=== PATIENT | male | born 1960 | race Caucasian/White ===

== ENCOUNTER → 2016-08-03 | Outpatient (CLI) | payer BC, OTHER ==
[~2016-08-03] VITALS: Ht 177.8 cm; Wt 93.0 kg
[~2016-08-03] MED LIST: ASP81TEC PO; ATOR80TA PO; ATR20T PO; CATHETER FLUSH 10 ML SYR IV PRN; FENO145T2 PO; METO25TA2 PO; OMEG1CAP51 PO; PNT40TEC PO; PRAS10TA6 PO; REGADENOSON 0.4 MG/5 ML SYR (LEXISCAN) IV ONE
[2016-08-03 09:42] VITALS: BP 137/82
[2016-08-03 09:47] VITALS: BP 137/80
[2016-08-03 09:49] VITALS: BP 136/85
== END ==
LOC: CARD 08:14
PROVIDERS: ATTEND Internal Medicine Cardiovascular Disease
DX: I25.10 Atherosclerotic heart disease of native coronary artery without angina pectoris (principal); R07.9 Chest pain, unspecified; E11.9 Type 2 diabetes mellitus without complications; I10 Essential (primary) hypertension; E78.5 Hyperlipidemia, unspecified
CPT/HCPCS: 78452; 93017

== ENCOUNTER 2017-05-20 19:10 | Inpatient (IN) | payer BC ==
[2017-05-20] VITALS (7 sets, daily range): BP systolic 122–137; BP diastolic 81–96
[~2017-05-20] VITALS: Ht 177.8 cm; Wt 86.2 kg
[~2017-05-20 19:10] MED LIST changes: -CATHETER FLUSH 10 ML SYR IV PRN; -REGADENOSON 0.4 MG/5 ML SYR (LEXISCAN) IV ONE
[2017-05-20] MEDS ORDERED: NITROGLYCERIN 0.4 MG SL TABS BTL 25'S SL PRN ×2 (19:30→22:30)
[2017-05-20] MEDS ORDERED: ASPIRIN 81 MG CHEW (CHILDREN'S ASA) PO ONE (19:30)
--- NOTE | 2017-05-20 19:36 | ED Chest Pain ---
General Chief Complaint: Chest Pain Stated Complaint: POSS HEART ATTACK Nursing Triage Note: PT C/O CP ALL DAY. HE REPORTS IT BEGAN THIS AM. 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 HE IS ALSO C/O DYSPNEA. HE DENIES RADIATION OR N/V. Nursing Sepsis Screen: No Definite Risk Source: patient Exam Limitations: no limitations History of Present Illness Date Seen by Provider: May 20, 2017 Time Seen by Provider: 19:23 Initial Comments The patient presents to the ER by private conveyance with a chief complaint that he has had intermittent 15-20 minute episodes of chest pain substernal today with his most recent one being severe enough that he's taken 2 nitroglycerin. The first nitroglycerin helped a little bit in half hour later he took another nitroglycerin that did not really do anything. He admits his nitroglycerin is over 2 years old. He has a history of an LA and 4 stents and is followed by Dr. Hitchcock. He still drinks and smokes a pack a day. He does not have diabetes but he does have high blood pressure and cholesterol. He takes metoprolol but has recently been stopped on his TriCor and Lipitor because of elevated liver enzymes. He takes a daily aspirin and took a second one today when he started having chest pain. He did not have any sweats or nausea but he is having some shortness of breath without cough, fever, chills. He states that the pain is reminiscent of chest pain he had prior to a heart attack. Allergies and Home Medications Allergies Coded Allergies: codeine (Verified Adverse Reaction, Unknown, 05/20/17) MAKES HIM JITTERY Home Medications Aspirin 81 Mg Tabec, 81 MG PO DAILY, (Reported) Atorvastatin Calcium 80 Mg Tablet, 80 MG PO HS, (Reported) Fenofibrate,Micronized 145 Mg Tablet, 145 MG PO HS, (Reported) Metoprolol Tartrate 25 Mg Tablet, 12.5 MG PO BID, (Reported) [place]-3 Fatty Acids/Fish Oil 1 Each Capsule, 3 TAB PO HS, (Reported) PT HAS 1400MG CAPS Pantoprazole Sod 40 Mg Tab, 40 MG PO DAILY, (Reported) Prasugrel Hydrochloride 10 Mg Tablet, 10 MG PO DAILY, (Reported) Patient Home Medication List Home Medication List Reviewed: Yes Review of Systems Constitutional: No chills, No fever EENTM: No Eye Pain, No Ear Pain Respiratory: Denies Cough, Denies Shortness of Air Cardiovascular: Chest Pain; Denies Edema, Denies Irregular Heart Rate, Denies Palpitations Gastrointestinal: Denies Abdomen Distended, Denies Abdominal Pain, Denies Constipated, Denies Nausea Genitourinary: Denies Burning, Denies Discharge, Denies Drainage Skin: No pruritus, No rash Psychiatric/Neurological: Denies Anxiety, Denies Depressed Past Kthbyng-Tomwdz-Pwgzuq Hx Patient Social History Alcohol Use: Occasionally Uses Recreational Drug Use: No Smoking Status: Current Everyday Smoker Type Used: Cigarettes 2nd Hand Smoke Exposure: Yes Recent Foreign Travel: No Contact w/Someone Who Travel: No Recent Infectious Disease Expo: No Recent Hopitalizations: Yes Seasonal Allergies Seasonal Allergies: No Past Medical History Surgeries: Yes (HEART CATH WITH STENT PLACEMENT X 4) Orthopedic Respiratory: No Cardiac: Yes Heart Attack, Hypertension Neurological: No Reproductive Disorders: No Gastrointestinal: No Musculoskeletal: Yes Endocrine: No Psychosocial: No Blood Disorders: No Physical Exam Vital Signs Vital Signs - First Documented 05/20/17 19:10 Pulse Ox 98 O2 Delivery Nasal Cannula O2 Flow Rate 2.00 Capillary Refill : Less Than 3 Seconds General Appearance: WD/WN, Mild Distress HEENT: PERRL/EOMI, Pharynx Normal Neck: Full Range of Motion, Normal Inspection, Non Tender, Supple Respiratory: Chest Non Tender, Lungs Clear, Normal Breath Sounds, No Accessory Muscle Use, No Respiratory Distress Cardiovascular: Regular Rate, Rhythm, No Edema, Normal Peripheral Pulses Gastrointestinal: Normal Bowel Sounds, Non Tender, Soft Extremity: Normal Capillary Refill, No Pedal Edema Neurologic/Psychiatric: Alert, Oriented x3, Normal Mood/Affect Skin: Normal Color, Warm/Dry Progress/Results/Core Measures Lab Results Laboratory Tests Test 05/20/17 19:15 Range/Units White Blood Count 13.3 H 4.3-11.0 10^3/uL Red Blood Count 4.96 4.35-5.85 10^6/uL Hemoglobin 16.1 13.3-17.7 G/DL Hematocrit 44 40-54 % Mean Corpuscular Volume 89 80-99 FL Mean Corpuscular Hemoglobin 33 25-34 PG Mean Corpuscular Hemoglobin Concent 36 32-36 G/DL Red Cell Distribution Width 12.6 10.0-14.5 % Platelet Count 210 130-400 10^3/uL Mean Platelet Volume 9.8 7.4-10.4 FL Neutrophils (%) (Auto) 56 42-75 % Lymphocytes (%) (Auto) 37 12-44 % Monocytes (%) (Auto) 6 0-12 % Eosinophils (%) (Auto) 1 0-10 % Basophils (%) (Auto) 0 0-10 % Neutrophils # (Auto) 7.5 1.8-7.8 X 10^3 Lymphocytes # (Auto) 4.9 H 1.0-4.0 X 10^3 Monocytes # (Auto) 0.7 0.0-1.0 X 10^3 Eosinophils # (Auto) 0.2 0.0-0.3 10^3/uL Basophils # (Auto) 0.1 0.0-0.1 10^3/uL Prothrombin Time 13.0 12.2-14.7 SEC INR Comment 1.0 0.8-1.4 Activated Partial Thromboplast Time 27 24-35 SEC Sodium Level 139 135-145 MMOL/L Potassium Level 3.6 3.6-5.0 MMOL/L Chloride Level 100 98-107 MMOL/L Carbon Dioxide Level 24 21-32 MMOL/L Anion Gap 15 H 5-14 MMOL/L Blood Urea Nitrogen 7 7-18 MG/DL Creatinine 0.90 0.60-1.30 MG/DL Estimat Glomerular Filtration Rate > 60 BUN/Creatinine Ratio 8 Glucose Level 214 H 70-105 MG/DL Calcium Level 10.0 8.5-10.1 MG/DL Magnesium Level 1.9 1.8-2.4 MG/DL Total Bilirubin 0.8 0.1-1.0 MG/DL Aspartate Amino Transf (AST/SGOT) 60 H 5-34 U/L Alanine Aminotransferase (ALT/SGPT) 102 H 0-55 U/L Alkaline Phosphatase 66 40-136 U/L Myoglobin 26.6 10.0-92.0 NG/ML Troponin I < 0.30 <0.30 NG/ML B-Type Natriuretic Peptide 35.9 <100.0 PG/ML Total Protein 7.6 6.4-8.2 GM/DL Albumin 4.5 3.2-4.5 GM/DL Lipase 37 8-78 U/L My Orders Orders - ARYAN DELONG Cbc With Automated Diff (05/20/17 19:29) Magnesium (05/20/17 19:29) Chest 1 View, Ap/Pa Only (05/20/17 19:29) Ekg Tracing (05/20/17:) Cardiac Profile 1 (05/20/17) Comprehensive Metabolic Panel (05/20/17:) Myoglobin Serum (05/20/17:) Protime With Inr (05/20/17:) Partial Thromboplastin Time (05/20/17:) O2 (05/20/17:) Monitor-Rhythm Ecg Trace Only (05/20/17) Lipid Panel (05/21/17 06:00) Aspirin Chewable Tablet (Baby Aspirin Ch (05/20/17:30) Nitroglycerin 0.4 Mg Btl 25's (Nitrostat (05/20/17:30) Saline Lock/Iv-Start (05/20/17:) Lipase (05/20/17:) BNP (05/20/17:) Medications Given in ED Current Medications Medications Dose Ordered Sig/José Miguel Route Start Time Stop Time Status Last Admin Dose Admin Aspirin 324 mg ONCE ONCE PO 05/20/17 19:30 05/20/17 19:31 DC 05/20/17 19:38 324 MG Nitroglycerin 0.4 mg UD PRN SL 05/20/17 19:30 05/20/17 22:24 DC 05/20/17 19:38 0.4 MG Vital Signs/I&O 05/20/17 05/20/17 05/20/17 19:10 19:15 19:15 Temp 97.2 Pulse 82 Resp 15 B/P (MAP) 159/111 (127) Pulse Ox 98 96 O2 Delivery Nasal Cannula Room Air Room Air O2 Flow Rate 2.00 Blood Pressure Mean: 127 Progress Note : Time: 19:35 Progress Note Despite him having admitted to taking 2 tablets of aspirin today were given and give him a full dose given the condition of his nitroglycerin. The nitroglycerin tablets were in a state of advanced decay with half of them being up fine powder and the bottom of a bottle with no label. We'll give him another tablet of nitroglycerin despite his pain being only a 4 out of 10 as his blood pressure is still elevated. We put him on oxygen and we'll address his pain. The initial EKG is not demonstrating a STEMI so we'll obtain labs and if there is no NSTEMI we will plan on an observation stay for serial examination and consultation with Dr. Hitchcock. Dr. Hitchcock echocardiogram 2014 showing normal left ventricular size and systolic function with an EF of 60%. Mildly dilated left atrium. Mild mitral and tricuspid regurgitation and an estimated pulmonary artery pressure of 35 mmHg. Initial ECG Impression Date: May 20, 2017 Initial ECG Impression Time: 19:10 Initial ECG Rate: 74 Initial ECG Rhythm: Normal Sinus Initial ECG Intervals: Normal Initial ECG Impression: Nonspecific Changes Initial ECG Comparisson: Unchanged (2010) Comment No ST T-segment elevation or depression. PVCs seen. Diagonstic Imaging: Xray Plain Films/CT/US/NM/MRI: chest Comments NAME: ALEX MCKENNA MED REC#: [id number] PHYSICIAN: ARYAN DELONG MD CC: DONALD FRAUSTO MD; ARYAN DELONG Page 1 of 1 RADIOLOGY REPORT VIA [place], [place] CC: DONALD FRAUSTO MD; ARYAN DELONG Page 1 of 1 RADIOLOGY REPORT NAME: CLARISAALEX B MED REC#: [id number] PT STATUS: REG ER : 1960 PHYSICIAN: ARYAN DELONG MD ADMIT DATE: 05/20/17/ER Signed Date of Exam: 05/20/17 CHEST 1 VIEW, AP/PA ONLY INDICATION: Anterior chest wall pain Portable chest 7:37 PM Heart size and pulmonary vascularity are normal. Lungs are clear. There are no effusions or pneumothoraces. IMPRESSION: Negative chest Dictated by: Dictated on workstation # [id number] Dict: 05/20/171940 Trans: 05/20/171950 Interpreted by: DONALD FRAUSTO MD Electronically signed by: DONALD FRAUSTO MD 05/20/171950 Reviewed: Reviewed by Me Departure Communication (Admissions) Time/Spoke to Admitting Phy: 20:30 Discussed case lab imaging findings and EKG with Dr. Lugo and he is okay with an observation stay for cardiac serial examination. Time/Spoke to Consulting Phy: 20:25 Discussed case lab imaging EKG and findings with Dr. Madrid. He recommends a half inch Nitropaste 3 times a day topical, metoprolol succinate 25 mg now and then daily as well as Plavix 75 mg now and then daily. He will consult on the patient. Impression Primary Impression: Chest pain Qualified Codes: R07.9 - Chest pain, unspecified Disposition: ADMITTED INPATIENT Condition: Stable Admissions Decision to Admit Reason: Admit from ER (General) Decision to Admit/Date: May 20, 2017 Time/Decision to Admit Time: 19:40 Departure-Patient Inst. Referrals: JESSICA CHANCE MD (PCP/Family) Primary Care Physician Copy Copies To 1: ISAAC HITCHCOCK MD; JESSICA CHANCE MD, TITUS J May 20, 2017 19:36
--- NOTE | 2017-05-20 19:43 | Diagnostic Imaging Report ---
INDICATION: Anterior chest wall pain Portable chest 7:37 PM Heart size and pulmonary vascularity are normal. Lungs are clear. There are no effusions or pneumothoraces. IMPRESSION: Negative chest Dictated by: Dictated on workstation # [id number]
[2017-05-20 19:53] LABS: BASOPHILS # (AUTO) 0.1 10^3/uL (0.0-0.1); BASOPHILS % (AUTO) 0 % (0-10); EOSINOPHILS # (AUTO) 0.2 10^3/uL (0.0-0.3); EOSINOPHILS % (AUTO) 1 % (0-10); HEMATOCRIT 44 % (40-54); HEMOGLOBIN 16.1 G/DL (13.3-17.7); LYMPHOCYTES # (AUTO) 4.9 X 10^3 (1.0-4.0); LYMPHOCYTES % (AUTO) 37 % (12-44); MEAN CORPUSCULAR HEMOGLOBIN 33 PG (25-34); MEAN CORPUSCULAR HGB CONC 36 G/DL (32-36); MEAN CORPUSCULAR VOLUME 89 FL (80-99); MEAN PLATELET VOLUME 9.8 FL (7.4-10.4); MONOCYTES # (AUTO) 0.7 X 10^3 (0.0-1.0); MONOCYTES % (AUTO) 6 % (0-12); NEUTROPHILS # (AUTO) 7.5 X 10^3 (1.8-7.8); NEUTROPHILS % (AUTO) 56 % (42-75); PLATELET COUNT 210 10^3/uL (130-400); RED BLOOD COUNT 4.96 10^6/uL (4.35-5.85); RED CELL DISTRIBUTION WIDTH 12.6 % (10.0-14.5); WHITE BLOOD COUNT 13.3 10^3/uL (4.3-11.0)
[2017-05-20 20:09] LABS: ALANINE AMINOTRANSFERASE 102 U/L (0-55); ALBUMIN 4.5 GM/DL (3.2-4.5); ALKALINE PHOSPHATASE 66 U/L (40-136); BILIRUBIN,TOTAL 0.8 MG/DL (0.1-1.0); BUN/CREATININE RATIO 8; CARBON DIOXIDE 24 MMOL/L (21-32); CHLORIDE 100 MMOL/L (98-107); GFR ESTIMATED > 60; GLUCOSE 214 MG/DL (70-105); LIPASE 37 U/L (8-78); MAGNESIUM 1.9 MG/DL (1.8-2.4); POTASSIUM 3.6 MMOL/L (3.6-5.0); SODIUM 139 MMOL/L (135-145); TOTAL PROTEIN 7.6 GM/DL (6.4-8.2)
[2017-05-20 20:15] LABS: MYOGLOBIN SERUM 26.6 NG/ML (10.0-92.0)
[2017-05-20] MEDS ORDERED: morphine INJ 10 MG/ML 1ML (SYR OR VIAL) IVP ONE (20:45)
[2017-05-20] MEDS ORDERED: NITROGLYCERIN 2% OINT 1 GM UNIT DOSE PACKET TOP ONE (20:45)
[2017-05-20] MEDS ORDERED: CLOPIDOGREL 75 MG (PLAVIX) TABLET PO ONE (20:45)
[2017-05-20] MEDS ORDERED: ACETAMINOPHEN 500 MG TAB (TYLENOL) PO PRN (22:30)
[2017-05-20] MEDS ORDERED: morphine INJ 4 MG/ML 1 ML (VIAL/SYRINGE) IV PRN (22:30)
[2017-05-20] MEDS ORDERED: ONDANSETRON 4 MG/2 ML (SDV) Z0FRAN IV PRN (22:30)
[2017-05-21] VITALS (34 sets, daily range): BP systolic 96–135; BP diastolic 69–99
[2017-05-21 03:40] LABS: BASOPHILS # (AUTO) 0.1 10^3/uL (0.0-0.1); BASOPHILS % (AUTO) 0 % (0-10); EOSINOPHILS # (AUTO) 0.3 10^3/uL (0.0-0.3); EOSINOPHILS % (AUTO) 2 % (0-10); HEMATOCRIT 37 % (40-54); LYMPHOCYTES # (AUTO) 4.8 X 10^3 (1.0-4.0); LYMPHOCYTES % (AUTO) 41 % (12-44); MEAN CORPUSCULAR HGB CONC 36 G/DL (32-36); MEAN CORPUSCULAR VOLUME 90 FL (80-99); MEAN PLATELET VOLUME 9.1 FL (7.4-10.4); MONOCYTES # (AUTO) 0.7 X 10^3 (0.0-1.0); MONOCYTES % (AUTO) 6 % (0-12); NEUTROPHILS # (AUTO) 5.7 X 10^3 (1.8-7.8); NEUTROPHILS % (AUTO) 50 % (42-75); PLATELET COUNT 154 10^3/uL (130-400); RED CELL DISTRIBUTION WIDTH 12.2 % (10.0-14.5); WHITE BLOOD COUNT 11.5 10^3/uL (4.3-11.0)
[2017-05-21 03:45] LABS: HEMOGLOBIN 14.7 G/DL (13.3-17.7); MEAN CORPUSCULAR HEMOGLOBIN 32 PG (25-34); RED BLOOD COUNT 4.54 10^6/uL (4.35-5.85)
[2017-05-21 04:01] LABS: BUN/CREATININE RATIO 12; CARBON DIOXIDE 24 MMOL/L (21-32); CHLORIDE 101 MMOL/L (98-107); CREATININE SERUM 0.77 MG/DL (0.60-1.30); GFR ESTIMATED > 60; GLUCOSE 223 MG/DL (70-105); POTASSIUM 3.4 MMOL/L (3.6-5.0); SODIUM 135 MMOL/L (135-145)
[2017-05-21 04:02] LABS: CHOLESTEROL 324 MG/DL (< 200); HDL CHOLESTEROL 36 MG/DL (40-60); TRIGLYCERIDES 529 MG/DL (<150); VLDL CHOLESTEROL 106 MG/DL (5-40)
[2017-05-21] MEDS ORDERED: NITROGLYCERIN 2% OINT 1 GM UNIT DOSE PACKET TOP SCH (06:00)
[2017-05-21] MEDS: ASPIRIN E.C. 81 MG (ECOTRIN) TAB PO SCH (08:32)
[2017-05-21] MEDS: lisINopril 5 MG (PRINIVIL) TABLET PO SCH (08:32)
[2017-05-21] MEDS: CLOPIDOGREL 75 MG (PLAVIX) TABLET PO SCH (08:32)
[2017-05-21] MEDS ORDERED: fentaNYL INJECTION 100 MCG/2 ML AMP ONE (10:08)
[2017-05-21] MEDS ORDERED: MIDAZOLAM 5 MG/5 ML (VERSED) VIAL ONE (10:08)
[2017-05-21] MEDS ORDERED: NS IV 1000 ML 1,000 ML ONE (10:08)
[2017-05-21] MEDS ORDERED: diphenhydrAMINE 50 MG/ML INJ (BENADRYL) ONE (10:08)
[2017-05-21] MEDS ORDERED: LIDOCAINE 1% INJ 50 ML (XYLOCAINE) VIAL ONE (10:08)
[2017-05-21] MEDS ORDERED: HEParin (CATH LAB) 2,000 ML IV ONE (10:09)
--- NOTE | 2017-05-21 10:21 | Consultation-Cardiology ---
HPI-Cardiology Cardiology Consultation: Date of Consultation 05/21/17 Time Seen by Provider: 09:45 Date of Admission Attending Physician Buark Manuel MD Admitting Physician Poncho Powell MD Consulting Physician GENESIS GALLAGHER MD, MA, FACP, FACC, FSCAI, CCDS HPI: Chief Complaint: CC: Chest discomfort HPI: 56 yo man with known CAD, admitted with intermittent chest discomfort: onset a couple of days ago, episodes lasting several hours, improved with nitro , midsternal, pressure-like, not associated with other symptoms, no radiation, reminiscent of previous angina Chronic mild exertional shortness of breath. No palp. No syncope. No ankle swelling Review of Systems-Cardiology Review of Systems Constitutional: malaise; No weight loss, No weight gain Eyes: No vision change Ears/Nose/Throat: No ear discharge, No nasal drainage, No recent hearing loss Respiratory: As described under HPI Cardiovascular: As described under HPI Gastrointestinal: No constipation, No diarrhea, No nausea, No vomiting Genitourinary: No dysuria, No hematuria, No urine frequency changes Musculoskeletal: No back pain, No joint pain Skin: No rash, No ulcerations Psychiatric/Neurological: No seizure, No focal weakness, No syncope Hematologic: No bleeding abnormalities RXU-Bpobna-Tgbwan Hx Patient Social History Alcohol Use: Occasionally Uses Recreational Drug Use: No Smoking Status: Current Everyday Smoker Type Used: Cigarettes 2nd Hand Smoke Exposure: Yes Recent Foreign Travel: Yes ([place]) Recent Infectious Disease Expo: No Hospitalization with Isolation: Denies Physical Abuse Screen: No Sexual Abuse: No Past Medical History PMH As described under Assessment. Family Medical History Family History: Cardiovascular disease 19 MOTHER, , Age:50's - 60 G8 BROTHER Cataracts Colon cancer 19 FATHER, , Age:50's - 60 19 MOTHER, , Age:50's - 60 Completed stroke G8 BROTHER FH: CABG (coronary artery bypass surgery) G8 BROTHER Internal cardiac defibrillator G8 BROTHER Myocardial infarction G8 BROTHER, , Age:30's - 40 Pacemaker G8 BROTHER Allergies and Home Medications Allergies Coded Allergies: codeine (Verified Adverse Reaction, Unknown, 05/20/17) MAKES HIM JITTERY Home Medications Aspirin 81 Mg Tabec, 81 MG PO DAILY, (Reported) Atorvastatin Calcium 80 Mg Tablet, 80 MG PO HS, (Reported) Fenofibrate,Micronized 145 Mg Tablet, 145 MG PO HS, (Reported) Metoprolol Tartrate 25 Mg Tablet, 12.5 MG PO BID, (Reported) [place]-3 Fatty Acids/Fish Oil 1 Each Capsule, 3 TAB PO HS, (Reported) PT HAS 1400MG CAPS Pantoprazole Sod 40 Mg Tab, 40 MG PO DAILY, (Reported) Prasugrel Hydrochloride 10 Mg Tablet, 10 MG PO DAILY, (Reported) Patient Home Medication List Home Medication List Reviewed: Yes Physical Exam-Cardiology Physical Exam Vital Signs/I&O 05/20/17 05/20/17 05/20/17 05/20/17 22:21 22:21 22:30 22:45 Temp 97.3 Pulse 72 69 70 77 Resp 12 14 15 B/P (MAP) 137/96 (110) 130/89 (103) 122/86 (98) Pulse Ox 96 95 97 O2 Delivery Nasal Cannula Nasal Cannula Nasal Cannula O2 Flow Rate 2.00 2.00 2.00 05/20/17 05/20/17 05/20/17 05/20/17 23:00 23:15 23:25 23:30 Pulse 65 64 59 Resp 14 19 13 B/P (MAP) 126/87 (100) 125/84 (98) 125/81 (96) Pulse Ox 97 96 97 O2 Delivery Nasal Cannula Nasal Cannula Nasal Cannula Nasal Cannula O2 Flow Rate 2.00 2.00 2.00 2.00 05/20/17 05/21/17 05/21/17 05/21/17 23:45 00:00 00:00 00:15 Temp 97.8 Pulse 59 59 57 Resp 14 16 16 B/P (MAP) 123/83 (96) 116/80 (92) 123/80 (94) Pulse Ox 97 96 96 94 O2 Delivery Nasal Cannula Nasal Cannula Nasal Cannula Nasal Cannula O2 Flow Rate 2.00 2.00 2.00 2.00 05/21/17 05/21/17 05/21/17 05/21/17 00:30 00:45 01:00 01:00 Pulse 54 53 61 61 Resp 14 23 13 B/P (MAP) 118/83 (95) 125/99 (108) 107/69 (82) Pulse Ox 96 95 95 O2 Delivery Nasal Cannula Nasal Cannula Nasal Cannula O2 Flow Rate 2.00 2.00 2.00 4/1505/21/17 05/21/17 05/21/17 02:00 03:00 04:00 04:00 Pulse 59 52 50 Resp 13 12 13 B/P (MAP) 100/70 (80) 103/74 (84) 103/71 (82) Pulse Ox 95 96 96 97 O2 Delivery Nasal Cannula Nasal Cannula Nasal Cannula Nasal Cannula O2 Flow Rate 2.00 2.00 2.00 2.00 05/21/17 05/21/17 05/21/17 05/21/17 05:00 06:00 07:00 07:00 Pulse 53 48 53 54 Resp 14 14 13 B/P (MAP) 110/81 (91) 108/80 (89) 100/70 (80) Pulse Ox 95 96 93 O2 Delivery Nasal Cannula Nasal Cannula Nasal Cannula O2 Flow Rate 2.00 2.00 2.00 05/21/17 05/21/17 05/21/17 05/21/17 07:46 08:00 08:00 08:30 Temp 97.7 Pulse 69 Resp 17 B/P (MAP) 108/78 (88) Pulse Ox 96 94 O2 Delivery Nasal Cannula Room Air Room Air O2 Flow Rate 2.00 05/21/17 05/21/17 09:00 10:00 Pulse 52 62 Resp 12 12 B/P (MAP) 109/75 (86) 121/83 (96) Pulse Ox 95 96 O2 Delivery Room Air Room Air Capillary Refill : Less Than 3 Seconds Constitutional: AAO x 3, well-developed, well-nourished HEENT: PERRL, EOMI, hearing is well preserved; No xanthelasmas are seen Neck: carotid pulses are 2 + bilaterally, with good upstrokes Respiratory: No accessory muscle use; lungs clear to percussion, lungs clear to auscultation Cardiovascular: regular rate-rhythm, S1 and S2, systolic murmur (faint PAT at card base) Gastrointestinal: No tender; soft; No guarding, No rebound; audible bowel sounds Extremities: No clubbing, No cyanosis, No significant edema Neurologic/Psychiatric: oriented x 3, grossly intact, power is 5/5 both on sides Skin: No rash on exposed areas, No ulcerations on exposed areas Data Review Labs Laboratory Tests 05/20/17 19:15: White Blood Count 13.3H, Red Blood Count 4.96, Hemoglobin 16.1, Hematocrit 44, Mean Corpuscular Volume 89, Mean Corpuscular Hemoglobin 33, Mean Corpuscular Hemoglobin Concent 36, Red Cell Distribution Width 12.6, Platelet Count 210, Mean Platelet Volume 9.8, Neutrophils (%) (Auto) 56, Lymphocytes (%) (Auto) 37, Monocytes (%) (Auto) 6, Eosinophils (%) (Auto) 1, Basophils (%) (Auto) 0, Neutrophils # (Auto) 7.5, Lymphocytes # (Auto) 4.9H, Monocytes # (Auto) 0.7, Eosinophils # (Auto) 0.2, Basophils # (Auto) 0.1, Prothrombin Time 13.0, INR Comment 1.0, Activated Partial Thromboplast Time 27, Sodium Level 139, Potassium Level 3.6, Chloride Level 100, Carbon Dioxide Level 24, Anion Gap 15H , Blood Urea Nitrogen 7, Creatinine 0.90, Estimat Glomerular Filtration Rate > 60, BUN/Creatinine Ratio 8, Glucose Level 214H, Calcium Level 10.0, Magnesium Level 1.9, Total Bilirubin 0.8, Aspartate Amino Transf (AST/SGOT) 60H, Alanine Aminotransferase (ALT/SGPT) 102H, Alkaline Phosphatase 66, Myoglobin 26.6, Troponin I < 0.30, B-Type Natriuretic Peptide 35.9, Total Protein 7.6, Albumin 4.5, Lipase 37 05/21/17 03:15: White Blood Count 11.5H, Red Blood Count 4.54, Hemoglobin 14.7, Hematocrit 37L, Mean Corpuscular Volume 90, Mean Corpuscular Hemoglobin 32, Mean Corpuscular Hemoglobin Concent 36, Red Cell Distribution Width 12.2, Platelet Count 154, Mean Platelet Volume 9.1, Neutrophils (%) (Auto) 50, Lymphocytes (%) (Auto) 41, Monocytes (%) (Auto) 6, Eosinophils (%) (Auto) 2, Basophils (%) (Auto) 0, Neutrophils # (Auto) 5.7, Lymphocytes # (Auto) 4.8H, Monocytes # (Auto) 0.7, Eosinophils # (Auto) 0.3, Basophils # (Auto) 0.1, Sodium Level 135, Potassium Level 3.4L, Chloride Level 101, Carbon Dioxide Level 24, Anion Gap 10, Blood Urea Nitrogen 9, Creatinine 0.77, Estimat Glomerular Filtration Rate > 60, BUN/ Creatinine Ratio 12, Glucose Level 223H, Calcium Level 9.0, Troponin I 1.23*H, Triglycerides Level 529H, Cholesterol Level 324H, LDL Cholesterol Direct 235H, VLDL Cholesterol 106H, HDL Cholesterol 36L Laboratory Tests 05/20/17 19:15 05/21/17 03:15 A/P-Cardiology Assessment/Admission Diagnosis Ac NSTEMI Coronary artery disease, history of stent to the right coronary artery using Promus 3.0x18 mm to the proximal and 2.5x12 mm to the mid right coronary artery in 2010. 2 stents to the circumflex artery using 2.5x12 mm and 2.5x16 mm Ion drug-eluting stent in January 2011. Currently asymptomatic. Most recent stress test and 2-D echocardiogram July 2016 revealed normal EF, no ischemia or infarct Hypertension, home blood pressure is showing good control, still mildly elevated during the office visit. I will not change his medication and continue to monitor. Hyperlipidemia, relative intolerance to Lipitor secondary to elevated LFTs. Has not agreed to Repathy Diabetes mellitus-patient reports diet controlled. Mild carotid stenosis last carotid ultrasound was done in July 2016. Continue to monitor. Chewing tobacco, educated on avoiding any tobacco products. Discussion and Recomendations * Given continuing symptoms, we recommend urgent cath. The procedure, risks, benefits, potential complications and alternatives of card cath and possible ad hoc cor intervention were reviewed. He provides informed consent * We discussed management of lipids * Further recs based on cath results Clinical Quality Measures AMI/AHF: ASA po Prior to arrival: Yes (81) DVT/VTE Risk/Contraindication: Risk Factor Score Per Nursin RFS Level Per Nursing on Admit: 2=Moderate GENESIS GALLAGHER MD FACP FACC CCDS May 21, 2017 10:21
[2017-05-21] MEDS ORDERED: NS IV 1000 ML 1,000 ML IV SCH ×2 (10:30→12:37)
[2017-05-21] MEDS ORDERED: HEParin 1000 UNIT/ML (10ML VIAL) FOR BOLUS ONE (10:31)
[2017-05-21] MEDS ORDERED: EPTIFIBATIDE BOLUS 20 ML IV ONE (10:31)
--- OUTSIDE RECORDS SUMMARY | 2017-05-21 10:39 | XMS REPORT | Continuity of Care Document ---
Author Author [facility] Organization [facility] Address Unknown Phone Unavailable Allergies Active Description Code Type Severity Reaction Onset Reported/Identified Relationship to Patient Clinical Status Yes codeine [id number] Drug Allergy Unknown N/A 12/28/2010 Medications There is no data. Problems Date Dx Coded Attending Type Code Diagnosis Diagnosed By 12/30/2010 Ot 272.4 HYPERLIPIDEMIA NEC/NOS 12/30/2010 Ot 305.1 TOBACCO USE DISORDER 12/30/2010 Ot 401.9 HYPERTENSION NOS 12/30/2010 Ot 410.41 AC MYOCARD INFARCT,OTH INFERIOR WALL,INI 12/30/2010 Ot 414.01 CORONARY ATHEROSCLEROSIS OF [place] CORON 02/03/2011 Ot 272.4 HYPERLIPIDEMIA NEC/NOS 02/03/2011 Ot 401.9 HYPERTENSION NOS 02/03/2011 Ot 410.92 AC MYOCARDIAL INFARCT,UNSPEC SITE,SUBSEQ 02/03/2011 Ot 414.01 CORONARY ATHEROSCLEROSIS OF [place] CORON 02/03/2011 Ot V45.82 PERCUTANEOUS TRANSLUM CORON ANGIOPLASTY 04/15/2015 Ot 401.9 04/15/2015 Ot 414.00 04/15/2015 Ot 397.0 04/15/2015 Ot 401.9 04/15/2015 Ot 414.00 04/15/2015 Ot 424.0 04/15/2015 Ot 429.3 04/15/2015 HARISH GARCIA Ot 250.00 04/15/2015 HARISH GARCIA Ot 272.4 04/15/2015 HARISH GARCIA Ot 401.9 04/15/2015 HARISH GARCIA Ot 414.00 04/15/2015 HARISH GARCIA Ot 250.00 04/15/2015 HARISH GARCIA Ot 272.4 04/15/2015 HARISH GARCIA Ot 401.9 04/15/2015 HARISH GARCIA Ot 414.00 04/15/2015 MERON KNIGHT, JESSICA R Ot 715.95 11/04/2015 Ot 401.9 HYPERTENSION NOS 11/04/2015 Ot 414.00 CORON ATHEROSCLER NOS TYPE VESSEL, NATIV 11/04/2015 Ot 397.0 TRICUSPID VALVE DISEASE 11/04/2015 Ot 401.9 HYPERTENSION NOS 11/04/2015 Ot 414.00 CORON ATHEROSCLER NOS TYPE VESSEL, NATIV 11/04/2015 Ot 424.0 MITRAL VALVE DISORDER 11/04/2015 Ot 429.3 CARDIOMEGALY 11/04/2015 HARISH GARCIA Ot 250.00 DIAB DEMOND WO COMPL, TYPE II OR UNSPEC TY 11/04/2015 HARISH GARCIA Ot 272.4 HYPERLIPIDEMIA NEC/NOS 11/04/2015 HARISH GARCIA Ot 401.9 HYPERTENSION NOS 11/04/2015 HARISH GARCIA Ot 414.00 CORON ATHEROSCLER NOS TYPE VESSEL, NATIV 11/04/2015 HARISH GARCIA Ot 250.00 DIAB DEMOND WO COMPL, TYPE II OR UNSPEC TY 11/04/2015 HARISH GARCIA Ot 272.4 HYPERLIPIDEMIA NEC/NOS 11/04/2015 HARISH GARCIA Ot 401.9 HYPERTENSION NOS 11/04/2015 HARISH GARCIA Ot 414.00 CORON ATHEROSCLER NOS TYPE VESSEL, NATIV 11/04/2015 MERON KNIGHT, JESSICA R Ot 715.95 OSTEOARTHROS NOS-PELVIS 08/02/2016 Ot 401.9 HYPERTENSION NOS 08/02/2016 Ot 414.00 CORON ATHEROSCLER NOS TYPE VESSEL, NATIV 08/02/2016 Ot 397.0 TRICUSPID VALVE DISEASE 08/02/2016 Ot 401.9 HYPERTENSION NOS 08/02/2016 Ot 414.00 CORON ATHEROSCLER NOS TYPE VESSEL, NATIV 08/02/2016 Ot 424.0 MITRAL VALVE DISORDER 08/02/2016 Ot 429.3 CARDIOMEGALY 08/02/2016 HARISH GARCIA Ot 250.00 DIAB DEMOND WO COMPL, TYPE II OR UNSPEC TY 08/02/2016 HARISH GARCIA Ot 272.4 HYPERLIPIDEMIA NEC/NOS 08/02/2016 HARISH GARCIA Ot 401.9 HYPERTENSION NOS 08/02/2016 HARISH GARCIA Ot 414.00 CORON ATHEROSCLER NOS TYPE VESSEL, NATIV 08/02/2016 HARISH GARCIA Ot 250.00 DIAB DEMOND WO COMPL, TYPE II OR UNSPEC TY 08/02/2016 HARISH GARCIA Ot 272.4 HYPERLIPIDEMIA NEC/NOS 08/02/2016 HARISH GARCIA Ot 401.9 HYPERTENSION NOS 08/02/2016 HARISH GARCIA Ot 414.00 CORON ATHEROSCLER NOS TYPE VESSEL, NATIV 08/02/2016 MERON KNIGHT, JESSICA R Ot 715.95 OSTEOARTHROS NOS-PELVIS 08/03/2016 Ot 401.9 HYPERTENSION NOS 08/03/2016 Ot 414.00 CORON ATHEROSCLER NOS TYPE VESSEL, NATIV 08/03/2016 Ot 397.0 TRICUSPID VALVE DISEASE 08/03/2016 Ot 401.9 HYPERTENSION NOS 08/03/2016 Ot 414.00 CORON ATHEROSCLER NOS TYPE VESSEL, NATIV 08/03/2016 Ot 424.0 MITRAL VALVE DISORDER 08/03/2016 Ot 429.3 CARDIOMEGALY 08/03/2016 HARISH GARCIA Ot 250.00 DIAB DEMOND WO COMPL, TYPE II OR UNSPEC TY 08/03/2016 HARISH GARCIA Ot 272.4 HYPERLIPIDEMIA NEC/NOS 08/03/2016 HARISH GARCIA Ot 401.9 HYPERTENSION NOS 08/03/2016 HARISH GARCIA Ot 414.00 CORON ATHEROSCLER NOS TYPE VESSEL, NATIV 08/03/2016 HARISH GARCIA Ot 250.00 DIAB DEMOND WO COMPL, TYPE II OR UNSPEC TY 08/03/2016 HARISH GARCIA Ot 272.4 HYPERLIPIDEMIA NEC/NOS 08/03/2016 HARISH GARCIA Ot 401.9 HYPERTENSION NOS 08/03/2016 HARISH GARCIA Ot 414.00 CORON ATHEROSCLER NOS TYPE VESSEL, NATIV 08/03/2016 MERON KNIGHT, JESSICA R Ot 715.95 OSTEOARTHROS NOS-PELVIS 08/19/2016 JOY KNIGHT, ISAAC Jeffries Ot E11.9 TYPE 2 DIABETES MELLITUS WITHOUT COMPLIC 08/19/2016 ISAAC HAMILTON MD Ot E78.5 HYPERLIPIDEMIA, UNSPECIFIED 08/19/2016 ISAAC HAMILTON MD Ot I10 ESSENTIAL (PRIMARY) HYPERTENSION 08/19/2016 ISAAC HAMILTON MD Ot I25.10 ATHSCL HEART DISEASE OF [place] CORONARY 08/19/2016 ISAAC HAMILTON MD Ot R07.9 CHEST PAIN, UNSPECIFIED 02/15/2017 Ot 401.9 HYPERTENSION NOS 02/15/2017 Ot 414.00 CORON ATHEROSCLER NOS TYPE VESSEL, NATIV 02/15/2017 Ot 397.0 TRICUSPID VALVE DISEASE 02/15/2017 Ot 401.9 HYPERTENSION NOS 02/15/2017 Ot 414.00 CORON ATHEROSCLER NOS TYPE VESSEL, NATIV 02/15/2017 Ot 424.0 MITRAL VALVE DISORDER 02/15/2017 Ot 429.3 CARDIOMEGALY 02/15/2017 HARISH GARCIA Ot 250.00 DIAB DEMOND WO COMPL, TYPE II OR UNSPEC TY 02/15/2017 HARISH GARCIA Ot 272.4 HYPERLIPIDEMIA NEC/NOS 02/15/2017 HARISH GARCIA Ot 401.9 HYPERTENSION NOS 02/15/2017 HARISH GARCIA Ot 414.00 CORON ATHEROSCLER NOS TYPE VESSEL, NATIV 02/15/2017 HARISH GARCIA Ot 250.00 DIAB DEMOND WO COMPL, TYPE II OR UNSPEC TY 02/15/2017 HARISH GARCIA Ot 272.4 HYPERLIPIDEMIA NEC/NOS 02/15/2017 HARISH GARCIA Ot 401.9 HYPERTENSION NOS 02/15/2017 HARISH GARCIA Ot 414.00 CORON ATHEROSCLER NOS TYPE VESSEL, NATIV 02/15/2017 MERON KNIGHT, JESSICA R Ot 715.95 OSTEOARTHROS NOS-PELVIS 02/15/2017 ISAAC HAMILTON MD Ot E11.9 TYPE 2 DIABETES MELLITUS WITHOUT COMPLIC 02/15/2017 ISAAC HAMILTON MD Ot E78.5 HYPERLIPIDEMIA, UNSPECIFIED 02/15/2017 ISAAC HAMILTON MD Ot I10 ESSENTIAL (PRIMARY) HYPERTENSION 02/15/2017 ISAAC HAMILTON MD Ot I25.10 ATHSCL HEART DISEASE OF [place] CORONARY 02/15/2017 JOY MD, BASHAR J Ot R07.9 CHEST PAIN, UNSPECIFIED Procedures Code Description Performed By Performed On 00.40 12/28/2010 00.46 12/28/2010 00.66 12/28/2010 36.07 12/28/2010 37.22 12/28/2010 88.53 12/28/2010 88.56 12/28/2010 Results There is no data. Encounters ACCT No. Visit Date/Time Discharge Status Pt. Type Provider Facility Loc./Unit Complaint [id number] 08/03/2016 08:14:00 08/03/2016 23:59:59 CLS Outpatient JOY KNIGHT, ISAAC Jeffries [facility] CARD CAD I25.10,CHEST PAIN R07.9 [id number] 08/06/2014 15:48:00 08/06/2014 23:59:59 CLS Outpatient MERON KNIGHT, JESSICA Arciniega [facility] RAD R GROIN PAIN,HIP [id number] 05/21/2014 08:04:00 05/21/2014 23:59:59 CLS Outpatient HARISH GARCIA [facility] CARD CAD HTN HLE [id number] 05/20/2014 07:41:00 05/20/2014 23:59:59 CLS Outpatient HARISH GARCIA [facility] CARD CAD HTN HLE [id number] 05/09/2012 08:17:00 Document Registration [id number] 05/08/2012 09:35:00 Document Registration [id number] 02/02/2011 07:33:00 Document Registration [id number] 12/29/2010 00:00:00 Document Registration
[2017-05-21] MEDS ORDERED: NITRO DRIP 25000 MCG/D5W 250 ML IV ONE (10:46)
[2017-05-21] MEDS ORDERED: ASPIRIN 81 MG CHEW (CHILDREN'S ASA) ONE (10:56)
[2017-05-21] MEDS ORDERED: CLOPIDOGREL 300 MG (PLAVIX) TABLET PO ONE (10:56)
[2017-05-21] MEDS ORDERED: FENO145T37 PO (11:43)
[2017-05-21] MEDS ORDERED: PANT40TA3 PO (11:43)
[2017-05-21] MEDS ORDERED: METO-333 PO (11:43)
[2017-05-21] MEDS ORDERED: CALCIUM CARBONATE 500 MG (TUMS) TAB.CHEW PO PRN (11:45)
--- NOTE | 2017-05-21 12:43 | Consultation-Cardiology ---
HPI-Cardiology Cardiology Consultation: Date of Consultation 05/21/17 Time Seen by Provider: 09:45 Date of Admission Attending Physician Burak Manuel MD Admitting Physician Poncho Powell MD Consulting Physician GENESIS GALLAGHER MD, FACP, FACC HPI: Chief Complaint: CC: Chest discomfort HPI: 56 yo man with known CAD, admitted with intermittent chest discomfort: onset a couple of days ago, episodes lasting several hours, improved with nitro , midsternal, pressure-like, not associated with other symptoms, no radiation, reminiscent of previous angina Chronic mild exertional shortness of breath. No palp. No syncope. No ankle swelling Review of Systems-Cardiology Review of Systems Constitutional: malaise; No weight loss, No weight gain Eyes: No vision change Ears/Nose/Throat: No ear discharge, No nasal drainage, No recent hearing loss Respiratory: As described under HPI Cardiovascular: As described under HPI Gastrointestinal: No constipation, No diarrhea, No nausea, No vomiting Genitourinary: No dysuria, No hematuria, No urine frequency changes Musculoskeletal: No back pain, No joint pain Skin: No rash, No ulcerations Psychiatric/Neurological: No seizure, No focal weakness, No syncope Hematologic: No bleeding abnormalities UPB-Uvkelk-Cmxgac Hx Patient Social History Alcohol Use: Occasionally Uses Recreational Drug Use: No Smoking Status: Current Everyday Smoker Type Used: Cigarettes 2nd Hand Smoke Exposure: Yes Recent Foreign Travel: Yes ([place]ANC[place]) Recent Infectious Disease Expo: No Hospitalization with Isolation: Denies Physical Abuse Screen: No Sexual Abuse: No Past Medical History PMH As described under Assessment. Family Medical History Family History: Cardiovascular disease 19 MOTHER, , Age:50's - 60 G8 BROTHER Cataracts Colon cancer 19 FATHER, , Age:50's - 60 19 MOTHER, , Age:50's - 60 Completed stroke G8 BROTHER FH: CABG (coronary artery bypass surgery) G8 BROTHER Internal cardiac defibrillator G8 BROTHER Myocardial infarction G8 BROTHER, , Age:30's - 40 Pacemaker G8 BROTHER Allergies and Home Medications Allergies Coded Allergies: codeine (Verified Adverse Reaction, Unknown, 05/20/17) MAKES HIM JITTERY Home Medications Aspirin 81 Mg Tabec, 81 MG PO DAILY, (Reported) Fenofibrate Nanocrystallized 145 Mg Tablet, 145 MG PO DAILY, (Reported) LAST FILLED 02/03/17 #90 Metoprolol Tartrate 25 Mg Tablet, 12.5 MG PO BID, (Reported) TAKES 1/2 OF A (25 MG) TABLET Sterling-3 Fatty Acids/Fish Oil 1 Each Capsule, 3 TAB PO HS, (Reported) PT HAS 1400MG CAPS Pantoprazole Sodium 40 Mg Tablet.dr, 40 MG PO DAILY, (Reported) Patient Home Medication List Home Medication List Reviewed: Yes Physical Exam-Cardiology Physical Exam Vital Signs/I&O 05/21/17 05/21/17 05/21/17 05/21/17 00:45 01:00 01:00 02:00 Pulse 53 61 61 59 Resp 23 13 13 B/P (MAP) 125/99 (108) 107/69 (82) 100/70 (80) Pulse Ox 95 95 95 O2 Delivery Nasal Cannula Nasal Cannula Nasal Cannula O2 Flow Rate 2.00 2.00 2.00 05/21/17 05/21/17 05/21/17 05/21/17 03:00 04:00 04:00 05:00 Pulse 52 50 53 Resp 12 13 14 B/P (MAP) 103/74 (84) 103/71 (82) 110/81 (91) Pulse Ox 96 96 97 95 O2 Delivery Nasal Cannula Nasal Cannula Nasal Cannula Nasal Cannula O2 Flow Rate 2.00 2.00 2.00 2.00 05/21/17 05/21/17 05/21/17 05/21/17 06:00 07:00 07:00 07:46 Pulse 48 53 54 Resp 14 13 B/P (MAP) 108/80 (89) 100/70 (80) Pulse Ox 96 93 O2 Delivery Nasal Cannula Nasal Cannula Nasal Cannula O2 Flow Rate 2.00 2.00 2.00 05/21/17 05/21/17 05/21/17 05/21/17 08:00 08:00 08:30 09:00 Temp 97.7 Pulse 69 52 Resp 17 12 B/P (MAP) 108/78 (88) 109/75 (86) Pulse Ox 96 94 95 O2 Delivery Room Air Room Air Room Air O2 Flow Rate 05/21/17 05/21/17 05/21/17 10:00 11:15 12:00 Temp 97.8 Pulse 62 65 Resp 12 14 B/P (MAP) 121/83 (96) 133/93 (106) Pulse Ox 96 96 96 O2 Delivery Room Air Room Air Room Air Capillary Refill : Less Than 3 Seconds Constitutional: AAO x 3, well-developed, well-nourished HEENT: PERRL, EOMI, hearing is well preserved; No xanthelasmas are seen Neck: carotid pulses are 2 + bilaterally, with good upstrokes Respiratory: No accessory muscle use; lungs clear to percussion, lungs clear to auscultation Cardiovascular: regular rate-rhythm, S1 and S2, systolic murmur (faint PAT at card base) Gastrointestinal: No tender; soft; No guarding, No rebound; audible bowel sounds Extremities: No clubbing, No cyanosis, No significant edema Neurologic/Psychiatric: oriented x 3, grossly intact, power is 5/5 both on sides Skin: No rash on exposed areas, No ulcerations on exposed areas Data Review Labs Laboratory Tests 05/20/17 19:15: White Blood Count 13.3H, Red Blood Count 4.96, Hemoglobin 16.1, Hematocrit 44, Mean Corpuscular Volume 89, Mean Corpuscular Hemoglobin 33, Mean Corpuscular Hemoglobin Concent 36, Red Cell Distribution Width 12.6, Platelet Count 210, Mean Platelet Volume 9.8, Neutrophils (%) (Auto) 56, Lymphocytes (%) (Auto) 37, Monocytes (%) (Auto) 6, Eosinophils (%) (Auto) 1, Basophils (%) (Auto) 0, Neutrophils # (Auto) 7.5, Lymphocytes # (Auto) 4.9H, Monocytes # (Auto) 0.7, Eosinophils # (Auto) 0.2, Basophils # (Auto) 0.1, Prothrombin Time 13.0, INR Comment 1.0, Activated Partial Thromboplast Time 27, Sodium Level 139, Potassium Level 3.6, Chloride Level 100, Carbon Dioxide Level 24, Anion Gap 15H , Blood Urea Nitrogen 7, Creatinine 0.90, Estimat Glomerular Filtration Rate > 60, BUN/Creatinine Ratio 8, Glucose Level 214H, Calcium Level 10.0, Magnesium Level 1.9, Total Bilirubin 0.8, Aspartate Amino Transf (AST/SGOT) 60H, Alanine Aminotransferase (ALT/SGPT) 102H, Alkaline Phosphatase 66, Myoglobin 26.6, Troponin I < 0.30, B-Type Natriuretic Peptide 35.9, Total Protein 7.6, Albumin 4.5, Lipase 37 05/21/17 03:15: White Blood Count 11.5H, Red Blood Count 4.54, Hemoglobin 14.7, Hematocrit 37L, Mean Corpuscular Volume 90, Mean Corpuscular Hemoglobin 32, Mean Corpuscular Hemoglobin Concent 36, Red Cell Distribution Width 12.2, Platelet Count 154, Mean Platelet Volume 9.1, Neutrophils (%) (Auto) 50, Lymphocytes (%) (Auto) 41, Monocytes (%) (Auto) 6, Eosinophils (%) (Auto) 2, Basophils (%) (Auto) 0, Neutrophils # (Auto) 5.7, Lymphocytes # (Auto) 4.8H, Monocytes # (Auto) 0.7, Eosinophils # (Auto) 0.3, Basophils # (Auto) 0.1, Sodium Level 135, Potassium Level 3.4L, Chloride Level 101, Carbon Dioxide Level 24, Anion Gap 10, Blood Urea Nitrogen 9, Creatinine 0.77, Estimat Glomerular Filtration Rate > 60, BUN/ Creatinine Ratio 12, Glucose Level 223H, Calcium Level 9.0, Troponin I 1.23*H, Triglycerides Level 529H, Cholesterol Level 324H, LDL Cholesterol Direct 235H, VLDL Cholesterol 106H, HDL Cholesterol 36L A/P-Cardiology Assessment/Admission Diagnosis Ac NSTEMI Coronary artery disease, history of stent to the right coronary artery using Promus 3.0x18 mm to the proximal and 2.5x12 mm to the mid right coronary artery in 2010. 2 stents to the circumflex artery using 2.5x12 mm and 2.5x16 mm Ion drug-eluting stent in January 2011. Most recent stress test and 2-D echocardiogram July 2016 revealed normal EF, no ischemia or infarct Hypertension Hyperlipidemia, relative intolerance to Lipitor secondary to elevated LFTs. Has not agreed to Repatha Diabetes mellitus-patient reports diet controlled Mild carotid stenosis on last carotid ultrasound was done in July 2016 Chewing tobacco Discussion and Recomendations * Given continuing symptoms, we recommend urgent cath. The procedure, risks, benefits, potential complications and alternatives of card cath and possible ad hoc cor intervention were reviewed. He provides informed consent * We discussed management of lipids * Further recs based on cath results Clinical Quality Measures AMI/AHF: ASA po Prior to arrival: Yes (81) DVT/VTE Risk/Contraindication: Risk Factor Score Per Nursin RFS Level Per Nursing on Admit: 2=Moderate ELLIOTT,ALI MD FACP FAC CCDS May 21, 2017 12:43
[2017-05-21] MEDS ORDERED: NITROGLYCERIN 0.4 MG SL TABS BTL 25'S SL PRN (12:45)
[2017-05-21] MEDS ORDERED: KCL 20 MEQ TAB (K-DUR) PO NR (12:45)
[2017-05-21] MEDS ORDERED: PATIENT MAY USE OWN MEDS, ALL PO SCH (12:45)
[2017-05-21] MEDS ORDERED: ASPI-983 PO (12:52)
[2017-05-21] MEDS ORDERED: OMEG-109 PO (12:52)
--- NOTE | 2017-05-21 13:37 | CARDIAC CATHETERIZATION ---
DATE OF SERVICE: 05/20/2017 CARDIAC CATHETERIZATION AND CORONARY INTERVENTION REPORT HISTORY OF PRESENT ILLNESS: The patient is a 56-year-old man who is known to have coronary artery disease and has had previous coronary interventions including drug-eluting stenting to the proximal mid right coronary artery and drug-eluting stenting to the left circumflex artery. The last coronary intervention was by Dr. Hitchcock in 01/2011 and the patient received drug-eluting stents to the left circumflex obtuse marginal system. A 2.5 x 12 mm and 2.5 x 16 mm stents were placed. He now comes in with acute non-ST elevation myocardial infarction. Due to continuing symptoms, cardiac catheterization was carried out after having obtained an informed consent. PROCEDURE: He was brought to the cardiac catheterization laboratory in a fasting state. Right groin was prepared and draped in the usual sterile fashion. A 1% lidocaine with local anesthesia. Modified Seldinger technique was used to advance a 6-Belgian sheath in the right femoral artery. A 5-Belgian JL4 catheter for left coronary angiography, 5-Belgian JR4 catheter for right coronary angiography, 5-Belgian pigtail catheter was used for left heart catheterization and left ventricular angiography. PERCUTANEOUS INTERVENTION OF THE LEFT CIRCUMFLEX ARTERY: Following completion of the diagnostic procedure, we carried out percutaneous intervention to the left circumflex obtuse marginal system, which was showing complete occlusion within previously placed stents. We used a 6-[place] JL4 guide catheter. We gave intravenous heparin and a double bolus of Integrilin. We used a ChoICE floppy wire to cross the lesions and the tip was placed in the distal portion of the first obtuse marginal branch. Balloon angioplasty was carried out at multiple spots with Emerge 2.0 x 20 mm balloon. Subsequent angiography revealed zoroastrian of normal antegrade flow. The in-stent restenosis was reduced from 100% to approximately 40%. The patient tolerated the procedure well. Angioplasty equipment was removed. Angiography of the right femoral artery was carried out through the sheath. Mynx was used to achieve hemostasis. He tolerated the procedure well. HEMODYNAMICS: Left ventricular end-diastolic pressure following coronary angiography was 15 mmHg. There is no significant pressure gradient on pullback across the aortic valve. Ascending aortic pressure was 109/69 with a mean of 85 mmHg. LEFT VENTRICULAR ANGIOGRAPHY: Left ventricular angiography was carried out in the right anterior oblique projection. Global left ventricular systolic function is fairly well preserved. There appears to be posterior basal akinesis. Left ventricular ejection fraction is 50%. There does not appear to be significant mitral regurgitation. CORONARY ANGIOGRAPHY: Left main coronary artery does not exhibit significant disease. Left anterior descending artery has mild plaques. Left circumflex artery was occluded within the proximal to mid portion of his first obtuse marginal branch. There is a stent that extends from the left circumflex artery into the obtuse marginal branch. The AV groove artery is jailed by the stent. Following balloon angioplasty to the stent, there is approximately 40% residual stenosis and the flow has improved from MICHAEL 0 to MICHAEL 3. The jailed portion of the AV groove left circumflex artery exhibits approximately 70% stenosis just pass the stent. The right coronary artery is occluded in its proximal portion. Stents are seen in the distal portion of the right coronary artery, but the artery is occluded proximal to that. CONCLUSIONS: 1. Coronary artery disease as outlined above. The culprit lesion was complete occlusion within the left circumflex and obtuse marginal stent, which are known to be overlapping stents placed in 2010. Following balloon angioplasty to this complete occlusion, there is approximately 40% residual stenosis and flow has improved from MICHAEL 0 to MICHAEL 3. The right coronary artery is chronically occluded in its proximal portion, proximal to the stents in the right coronary artery. It has left to right collaterals. The left anterior descending and left circumflex artery do not exhibit significant obstructive disease. 2. Well-preserved global left ventricular systolic function with ejection fraction of 50%. 3. Posterobasal akinesis. 4. No significant mitral regurgitation. 5. Mild elevation of left ventricular end-diastolic pressure. DISCUSSION AND RECOMMENDATIONS: Dual antiplatelet therapy is being continued. He has had some difficulty with statins in the past, but apparently, is able to tolerate his current dose of atorvastatin. This is being continued. Liver enzymes need to be monitored. He is exhibiting marked hypertriglyceridemia. We are adding fenofibrate to the treatment regimen. He has been advised to quit the tobacco use immediately and completely. Job ID: [id number] DocumentID: [id number] Dictated Date: 05/21/2017 12:56:19 Biology Instructor Date: 05/21/2017 13:36:37 Dictated By: GENESIS GALLAGHER MD, MA, FACP, FACC, MTDD
--- NOTE | 2017-05-21 14:27 | History & Physical-Hospitalist ---
History of Present Illness HPI/Chief Complaint The patient is a 56-year-old white male who was admitted last night with chest pain suspicious of angina. He had apparently had 2 episodes of chest pain lasting approximately 2 minutes over the 24 hours prior to admission. He is a shelter patient of Dr. Hitchcock and the cardiology clinic. He had previously had an acute myocardial infarction found to be as a result of a total occlusion of the right coronary artery. This was December of 2010. He had acute angioplasty and stenting to the right coronary. It was also found that he had a significant lesion in his circumflex. This was not addressed until January 2011 in order to stabilize his situation. This was completed on February 022010. He reports that he is then done relatively well until yesterday. He has continued to smoke. He reported that the 2 short episodes of pain reminded him of his previous experience. He had angiogram this morning and subsequent stenting. He is now alert and eating lunch. Source: patient Exam Limitations: no limitations Date Seen 05/21/17 Time Seen by Provider: 13:55 Attending Physician Burak Blas MD PCP Poncho Powell MD Referring Physician Date of Admission May 20, 2017 at 20:25 Home Medications & Allergies Home Medications Reviewed patient Home Medication Reconciliation performed by pharmacy medication reconciliations milieu technician and/or nursing. Patients Allergies have been reviewed. Allergies Allergies Coded Allergies codeine (Verified Adverse Reaction, Unknown, 05/20/17) MAKES HIM JITTERY Past Kzshtjv-Ozzidk-Awfqnm Hx Past Med/Social Hx: Reviewed Nursing Past Med/Soc Hx Patient Social History Alcohol Use: Occasionally Uses Alcohol Beverage of Choice: Beer Recreational Drug Use: No Smoking Status: Current Everyday Smoker Type Used: Cigarettes 2nd Hand Smoke Exposure: Yes Physical Abuse Screen: No Sexual Abuse: No Recent Foreign Travel: Yes ([place]) Contact w/other who traveled: Yes Recent Hopitalizations: No Recent Infectious Disease Expo: No Immunizations Up To Date Pediatric: No Seasonal Allergies Seasonal Allergies: No Past Medical History Surgeries: Orthopedic Cardiac: Heart Attack, Hypertension Reproductive: No Gastrointestinal: Gastroesophageal Reflux History of Blood Disorders: No Family History Cardiovascular disease 19 MOTHER, , Age:50's - 60 G8 BROTHER Cataracts Colon cancer 19 FATHER, , Age:50's - 60 19 MOTHER, , Age:50's - 60 Completed stroke G8 BROTHER FH: CABG (coronary artery bypass surgery) G8 BROTHER Internal cardiac defibrillator G8 BROTHER Myocardial infarction G8 BROTHER, , Age:30's - 40 Pacemaker G8 BROTHER Review of Systems Constitutional: see HPI EENTM: no symptoms reported Respiratory: no symptoms reported Cardiovascular: see HPI Gastrointestinal: no symptoms reported Genitourinary: no symptoms reported Musculoskeletal: no symptoms reported Skin: no symptoms reported Psychiatric/Neurological: No Symptoms Reported Physical Exam Physical Exam Vital Signs Capillary Refill : Less Than 3 Seconds General Appearance: No Apparent Distress, WD/WN Eyes: Bilateral Eye Normal Inspection HEENT: Normal ENT Inspection Neck: Normal Inspection Respiratory: Chest Non Tender, Lungs Clear, Normal Breath Sounds, No Accessory Muscle Use, No Respiratory Distress Cardiovascular: Regular Rate, Rhythm, No Edema, No Gallop, No JVD, No Murmur, Normal Peripheral Pulses Gastrointestinal: Normal Bowel Sounds, No Organomegaly, No Pulsatile Mass, Non Tender, Soft Back: Normal Inspection, No CVA Tenderness, No Vertebral Tenderness Extremity: Normal Capillary Refill, Normal Inspection, Normal Range of Motion, Non Tender, No Calf Tenderness, No Pedal Edema Skin: Normal Color, Warm/Dry Lymphatic: No Adenopathy Results Results/Procedures Labs Patient resulted labs reviewed. Assessment/Plan Admission Diagnosis Chest pain 2.previous history of myocardial infarction and stenting. 3.tobaccoism Admission Status: Observation Assessment and Plan Postprocedure care Clinical Quality Measures AMI/AHF: ASA po Prior to arrival: Yes (81) DVT/VTE Risk/Contraindication: Risk Factor Score Per Nursin RFS Level Per Nursing on Admit: 2=Moderate BURAK BLAS MD May 21, 2017 14:27
[2017-05-21] MEDS ORDERED: FENOFIBRATE 134 MG (LOFIBRA) CAPSULE PO SCH (21:00)
[2017-05-21] MEDS ORDERED: ATORVASTATIN 40 MG (LIPITOR) TABLET PO SCH (21:00)
[2017-05-22] VITALS (9 sets, daily range): BP systolic 100–118; BP diastolic 60–85
[2017-05-22 04:05] LABS: BASOPHILS % (AUTO) 0 % (0-10); EOSINOPHILS # (AUTO) 0.2 10^3/uL (0.0-0.3); EOSINOPHILS % (AUTO) 2 % (0-10); HEMATOCRIT 43 % (40-54); HEMOGLOBIN 15.1 G/DL (13.3-17.7); LYMPHOCYTES # (AUTO) 3.6 X 10^3 (1.0-4.0); LYMPHOCYTES % (AUTO) 38 % (12-44); MEAN CORPUSCULAR HEMOGLOBIN 32 PG (25-34); MEAN CORPUSCULAR HGB CONC 35 G/DL (32-36); MEAN CORPUSCULAR VOLUME 91 FL (80-99); MONOCYTES # (AUTO) 0.7 X 10^3 (0.0-1.0); MONOCYTES % (AUTO) 8 % (0-12); NEUTROPHILS % (AUTO) 53 % (42-75); PLATELET COUNT 176 10^3/uL (130-400); RED BLOOD COUNT 4.76 10^6/uL (4.35-5.85); RED CELL DISTRIBUTION WIDTH 12.8 % (10.0-14.5); WHITE BLOOD COUNT 9.6 10^3/uL (4.3-11.0)
[2017-05-22 04:25] LABS: ALANINE AMINOTRANSFERASE 96 U/L (0-55); ALBUMIN 3.8 GM/DL (3.2-4.5); ALKALINE PHOSPHATASE 63 U/L (40-136); BILIRUBIN,TOTAL 0.7 MG/DL (0.1-1.0); BUN/CREATININE RATIO 11; CALCIUM 9.2 MG/DL (8.5-10.1); CARBON DIOXIDE 22 MMOL/L (21-32); CHLORIDE 105 MMOL/L (98-107); CHOLESTEROL 316 MG/DL (< 200); CREATININE SERUM 0.72 MG/DL (0.60-1.30); GFR ESTIMATED > 60; GLUCOSE 226 MG/DL (70-105); HDL CHOLESTEROL 36 MG/DL (40-60); MAGNESIUM 1.8 MG/DL (1.8-2.4); POTASSIUM 3.5 MMOL/L (3.6-5.0); SODIUM 137 MMOL/L (135-145); TOTAL PROTEIN 6.5 GM/DL (6.4-8.2); TRIGLYCERIDES 386 MG/DL (<150); VLDL CHOLESTEROL 77 MG/DL (5-40)
--- NOTE | 2017-05-22 08:54 | Cardiology Progress Note ---
Subjective Date Seen by Provider: May 22, 2017 Time Seen by Provider: 08:44 Subjective/Events-last exam Patient is laying down in bed, feeling better, denied any active chest pain, denied any palpitation, tolerating medication well, groin is healing well. We had a long discussion about his condition. He is intolerant to statin or fenofibrate due to elevated liver enzymes Review of Systems General: No Chills, No Night Sweats, No Fatigue, No Malaise, No Appetite, No Other HEENT: No Head Aches, No Visual Changes, No Eye Pain, No Ear Pain, No Dysphasia , No Sinus Congestion, No Post Nasal Drip, No Sore Throat, No Other Pulmonary: No Dyspnea, No Cough, No Pleuritic Chest Pain, No Other Cardiovascular: No: Chest Pain, Palpitations, Orthopnea, Paroxysmal Noc. Dyspnea, Edema, Lt Headedness, Other Objective-Cardiology Exam Last Set of Vital Signs Vital Signs 05/21/17 05/22/17 05/22/17 07:46 07:42 08:00 Temp 97.4 Pulse 79 Resp 12 Pulse Ox 94 O2 Delivery Room Air O2 Flow Rate 2.00 Capillary Refill : Less Than 3 Seconds I&O Intake and Output 05/22/17 00:00 Intake Total 2430 ml Output Total 3250 ml Balance -820 ml Intake Oral 1430 ml IV Total 1000 ml Output Urine Total 3250 ml General: Alert, Oriented X3, Cooperative HEENT: Atraumatic, PERRLA Neck: Supple, No JVD, No Thyromegaly Lungs: Clear to Auscultation, Normal Air Movement Heart: Regular Rate, Normal S1, Normal S2, No Murmurs Abdomen: Normal Bowel Sounds, Soft, No Tenderness, No Hepatosplenomegaly, No Masses Extremities: No Clubbing, No Cyanosis, No Edema, Normal Pulses, No Tenderness/ Swelling Skin: No Rashes, No Breakdown, No Significant Lesion Neuro: Normal Gait, Normal Speech, Strength at 5/5 X4 Ext, Normal Tone, Sensation Intact Psych/Mental Status: Mental Status NL, Mood NL Results Lab Laboratory Tests 05/22/17 03:35 A/P-Cardiology Admission Diagnosis Non-ST elevation myocardial infarction Coronary artery disease Hypertension Hyperlipidemia Diabetes mellitus Assessment/Plan Acute non-ST elevation myocardial infarction, status post cardiac catheterization done by Dr. Bundy showing total occlusion of the right coronary artery which appeared to be chronic getting collaterals from the left system, total occlusion of the circumflex artery that is known to have 2 overlapping Ion stents 2.5x12 and 2.516 mm, underwent balloon angioplasty was significant improvement, there was 40 percent residual stenosis that was treated conservatively. I will continue monitoring for now and if palpitation started having more symptoms we will consider stenting of the obtuse marginal branch or referral for a tertiary care center for attempt to intervene on the chronic total occlusion of the right coronary artery Coronary artery disease, history of stent to the right coronary artery using Promus 3.0x18 mm to the proximal and 2.5x12 mm to the mid right coronary artery in 2010. 2 stents to the circumflex artery using 2.5x12 mm and 2.5x16 mm Ion drug-eluting stent in January 2011. Cardiac catheterization was done on May 21, 2017, total occlusion of the right coronary artery and circumflex artery, management as described above Hypertension, continue to monitor Hyperlipidemia, relative intolerance to Lipitor secondary to elevated LFTs. Still persistent elevation, we had a long discussion again about the use of Repatha and he is agreeable at this point. Diabetes mellitus-patient reports diet controlled, we had a long discussion about the need for titer diabetic control especially in the presence with coronary artery disease and hyperlipidemia, I will refer him for endocrinology evaluation Mild carotid stenosis on last carotid ultrasound was done in July 2016 Chewing tobacco, patient was instructed and educated about stopping all tobacco products Clinical Quality Measures AMI/AHF: ASA po Prior to arrival: Yes (81) DVT/VTE Risk/Contraindication: Risk Factor Score Per Nursin RFS Level Per Nursing on Admit: 2=Moderate ISAAC HAMILTON MD May 22, 2017 08:54
[2017-05-22] MEDS: CLOPIDOGREL 75 MG (PLAVIX) TABLET PO SCH (09:19)
[2017-05-22] MEDS: lisINopril 5 MG (PRINIVIL) TABLET PO SCH (09:19)
[2017-05-22] MEDS: ASPIRIN E.C. 81 MG (ECOTRIN) TAB PO SCH (09:20)
[2017-05-22] MEDS ORDERED: CLOP75TA28 PO (09:25)
[2017-05-22] MEDS ORDERED: Nitroglycerin SL (09:25)
[2017-05-22] MEDS ORDERED: ATOR40TA PO (09:25)
[2017-05-22] MEDS ORDERED: LISI-556 PO (09:25)
--- NOTE | 2017-05-22 09:26 | Discharge Inst-Post CATH ---
Discharge Inst-CATH Post Cardiac Cath D/C Inst Follow Up/Plan Appointment with Dr. Hitchcock's office next week Appointment with Dr. Odonnell office for diabetic management CARDIAC CATH DISCHARGE INSTRUCTIONS *Hold Metformin for 48 hours post heart cath. ACTIVITY * Go Home directly and rest. * Limit activity of the leg (or wrist if it was used) for 7 days including aerobics, swimming, jogging, bicycling, etc. * Restrict stair-climbing for 7 days if possible, if not, climb up with your non -cath leg, then bring together on the same step. * Avoid lifting, pushing, pulling or excessive movement of the affected extremity for 7 days. * Customary sexual activity may be resumed after 2 days-use caution not to use a position that strains or causes pain to the affected extremity. * No driving for 24 hours. * NO SMOKING. * Avoid straining for bowel movements for 7 days. * Gentle walking on level ground is allowed. * Returning to work will depend on the type of procedure and the results. Your doctor will discuss this with you. CALL YOUR DOCTOR FOR ANY OF THE FOLLOWING: *If bleeding from the puncture site occurs- Apply gentle pressure to site with clean cloth and call your doctor or EMS. * If a knot or lump forms under the skin, increases in size, or causes pain. * If bruising appears to be worsening or moving further down your leg instead of disappearing. * Temperature above 101 F. CARE OF YOUR GROIN INCISION; * Bruising or purple discoloration of the skin near the puncture site is common. * You may shower only, no bathtub bathing for 5 days. Be careful to avoid slipping as your leg may feel stiff. * If a closure device was used on your femoral artery, please see the attached guide regarding care of the device and your leg. * REMOVE the dressing from your groin the next day after your procedure in the shower. CARE OF YOUR WRIST INCISION; * Bruising or purple discoloration of the skin near the puncture site is common. * You may shower. * DO NOT submerge wrist. * Remove dressing in 24 hours. ISAAC HITCHCOCK MD May 22, 2017 09:26
--- NOTE | 2017-05-22 11:18 | Discharge Summary-Hospitalist ---
Diagnosis/Chief Complaint Date of Admission May 20, 2017 at 8:25 pm Date of Discharge Discharge Date: May 22, 2017 Admission Diagnosis Chest pain 2.previous history of myocardial infarction and stenting. 3.tobaccoism Discharge Summary Procedures/Consulations Cardiology Discharge Physical Exam Allergies: Coded Allergies: codeine (Verified Adverse Reaction, Unknown, 05/20/17) MAKES HIM JITTERY Vitals & I&Os Vital Signs Date Time Temp Pulse Resp B/P (MAP) Pulse Ox O2 Delivery O2 Flow Rate FiO2 05/22/17 10:45 79 12 117/72 94 Room Air 05/22/17 07:42 97.4 05/21/17 08:00 General Appearance: Alert, Oriented X3 Respiratory: Clear to Auscultation Cardiovascular: Regular Rate Hospital Course Pt admitted for NSTEMI and went to laboratory technician emergently where he went underwent balloon angioplasty but had no stenting done. He was stable overnight and evaluated by his [employer], Dr Hitchcock, on second day of admission. His symptoms resolved and he was deemed stable for discharge and to follow up with Dr Hitchcock. Labs (last 24 hrs) Patient resulted labs reviewed. Pending Labs Discussion & Recommendations Discharge Planning: >30 minutes discharge planning Discharge Home Medications: Active Scripts Active Lisinopril 5 Mg Tablet 5 Mg PO DAILY@0900 [Nitroglycerin] 0.4 MG Btl 0 Mg SL NEEDED PRN Lipitor (Atorvastatin Calcium) 40 Mg Tablet 40 Mg PO HS Clopidogrel (Clopidogrel Bisulfate) 75 Mg Tablet 75 Mg PO DAILY Reported Aspirin EC (Aspirin) 81 Mg Tablet.dr 81 Mg PO DAILY Fish Oil 1,200 mg Softgel ([place]-3 Fatty Acids/Fish Oil) 1 Each Capsule 3,600 Mg PO DAILY TAKES 3 (1,200 MG) CAPSULES Pantoprazole Sodium 40 Mg Tablet.dr 40 Mg PO DAILY Metoprolol Tartrate 25 Mg Tablet 12.5 Mg PO BID TAKES 1/2 OF A (25 MG) TABLET Instructions to patient/family Please see electronic discharge instructions given to patient. Clinical Quality Measures AMI/AHF: ASA po Prior to arrival: Yes (81) DVT/VTE Risk/Contraindication: Risk Factor Score Per Nursin RFS Level Per Nursing on Admit: 2=Moderate ILYA WILLIAM MD May 22, 2017 11:18
--- OUTSIDE RECORDS SUMMARY | 2017-05-23 12:31 | XMS REPORT | Continuity of Care Document ---
Author Author [facility] Organization [facility] Address Unknown Phone Unavailable Allergies Active Description Code Type Severity Reaction Onset Reported/Identified Relationship to Patient Clinical Status Yes codeine [id number] Drug Allergy Unknown N/A 12/28/2010 Medications There is no data. Problems Date Dx Coded Attending Type Code Diagnosis Diagnosed By 12/30/2010 Ot 272.4 HYPERLIPIDEMIA NEC/NOS 12/30/2010 Ot 305.1 TOBACCO USE DISORDER 12/30/2010 Ot 401.9 HYPERTENSION NOS 12/30/2010 Ot 410.41 AC MYOCARD INFARCT,OTH INFERIOR WALL,INI 12/30/2010 Ot 414.01 CORONARY ATHEROSCLEROSIS OF [place] CORON 02/03/2011 Ot 272.4 HYPERLIPIDEMIA NEC/NOS 02/03/2011 Ot 401.9 HYPERTENSION NOS 02/03/2011 Ot 410.92 AC MYOCARDIAL INFARCT,UNSPEC SITE,SUBSEQ 02/03/2011 Ot 414.01 CORONARY ATHEROSCLEROSIS OF [place] CORON 02/03/2011 Ot V45.82 PERCUTANEOUS TRANSLUM CORON [...] HARISH GARCIA Ot 272.4 HYPERLIPIDEMIA NEC/NOS 08/02/2016 HRAISH GARCIA Ot 401.9 HYPERTENSION NOS 08/02/2016 HARISH [...] MD Ot I25.10 ATHSCL HEART DISEASE OF [place] CORONARY 08/19/2016 ISAAC HAMILTON MD Ot R07.9 [...] MD Ot I25.10 ATHSCL HEART DISEASE OF [place] CORONARY 02/15/2017 JOY MD, BASHAR J Ot R07.9 CHEST PAIN, UNSPECIFIED Procedures Code Description Performed By Performed On 00.40 12/28/2010 00.46 12/28/2010 00.66 12/28/2010 36.07 12/28/2010 37.22 12/28/2010 88.53 12/28/2010 88.56 12/28/2010 Results There is no data. Encounters ACCT No. Visit Date/Time Discharge Status Pt. Type Provider Facility Loc./Unit Complaint [id number] 08/03/2016 08:14:00 08/03/2016 23:59:59 CLS Outpatient JOY KNIGHT, ISAAC Jeffries [facility] CARD CAD I25.10,CHEST PAIN R07.9 [id number] 08/06/2014 15:48:00 08/06/2014 23:59:59 CLS Outpatient MERON KNIGHT, JESSICA Arciniega [facility] RAD R GROIN PAIN,HIP [id number] 05/21/2014 08:04:00 05/21/2014 23:59:59 CLS Outpatient HARISH GARCIA [facility] CARD CAD HTN HLE [id number] 05/20/2014 07:41:00 05/20/2014 23:59:59 CLS Outpatient HARISH GARCIA [facility] CARD CAD HTN HLE [id number] 05/09/2012 08:17:00 Document Registration [id number] 05/08/2012 09:35:00 Document Registration [id number] 02/02/2011 07:33:00 Document Registration [id number] 12/29/2010 00:00:00 Document Registration
== END 2017-05-22 10:45 | disposition home or self-care (01) | DRG 251 ==
LOC: EDUNIT# 19:10 → ER 19:11 → ICU 20:25 → OBSVTOIN 20:25 → UNDOADMOB 20:25 → INTOOBSV 20:25 → ICU 20:25 → UNDODISIN 05-22 10:45
PROVIDERS: ADMIT Internal Medicine; ATTEND Internal Medicine
PROC: 02703ZZ Dilation of Coronary Artery, One Artery, Percutaneous Approach (ICD-10-PCS; principal; 2017-05-20)
PROC: 4A023N7 Measurement of Cardiac Sampling and Pressure, Left Heart, Percutaneous Approach (ICD-10-PCS; 2017-05-20)
PROC: B2151ZZ Fluoroscopy of Left Heart using Low Osmolar Contrast (ICD-10-PCS; 2017-05-20)
PROC: B2111ZZ Fluoroscopy of Multiple Coronary Arteries using Low Osmolar Contrast (ICD-10-PCS; 2017-05-20)
DX: I21.4 Non-ST elevation (NSTEMI) myocardial infarction (principal); T82.855A Stenosis of coronary artery stent, initial encounter; I25.10 Atherosclerotic heart disease of native coronary artery without angina pectoris; I10 Essential (primary) hypertension; E11.9 Type 2 diabetes mellitus without complications; E78.5 Hyperlipidemia, unspecified; F17.210 Nicotine dependence, cigarettes, uncomplicated; R79.89 Other specified abnormal findings of blood chemistry; T46.6X5A Adverse effect of antihyperlipidemic and antiarteriosclerotic drugs, initial encounter; I25.2 Old myocardial infarction; Z95.5 Presence of coronary angioplasty implant and graft
CPT/HCPCS: 36415; 71045; 80048; 80053; 80061; 83036; 83690; 83735; 83874; 83880; 84443; 84484; 85025; 85610; 85730; 93005; 93041; 93458; 96374

== ENCOUNTER → 2017-11-07 | Outpatient (CLI) | payer BC ==
[~2017-11-07] MED LIST changes: +ASPI-983 PO; +ATOR40TA PO; +CLOP75TA28 PO; +FENO145T37 PO; +LISI-556 PO; +METO-333 PO; +Nitroglycerin SL; +OMEG-109 PO; +PANT40TA3 PO
== END ==
LOC: CARD 11:27
PROVIDERS: ATTEND Internal Medicine Cardiovascular Disease
DX: I25.10 Atherosclerotic heart disease of native coronary artery without angina pectoris (principal); R07.9 Chest pain, unspecified; E11.9 Type 2 diabetes mellitus without complications; I10 Essential (primary) hypertension; E78.1 Pure hyperglyceridemia
CPT/HCPCS: 93306

== ENCOUNTER 2018-12-05 11:49 | Day surgery (SDC) | payer BC ==
[~2018-12-05] VITALS: Ht 177.8 cm; Wt 89.5 kg
[2018-12-05] VITALS (11 sets, daily range): BP systolic 119–154; BP diastolic 70–101
[2018-12-05] MEDS ORDERED: HEParin (CATH LAB) 2,000 ML IV ONE (12:01)
[2018-12-05] MEDS ORDERED: NS IV 1000 ML 1,000 ML ONE (12:01)
[2018-12-05] MEDS ORDERED: LIDOCAINE 1% INJ 20 ML 20 ML VIAL ONE (12:01)
[2018-12-05] MEDS ORDERED: NS IV 1000 ML 1,000 ML IV SCH (12:06)
--- NOTE | 2018-12-05 12:19 | Diagnostic Imaging Report ---
INDICATION: Preop for heart catheterization. TIME OF EXAM: 12:13 p.m. COMPARISON: Correlation is made with prior chest from 05/20/2017. FINDINGS: The heart size is normal. The pulmonary vascularity is unremarkable. The lungs are clear. No infiltrate, effusion or pneumothorax is detected. IMPRESSION: No acute cardiopulmonary process is detected. Dictated by: Dictated on workstation # [id number]
[2018-12-05 12:22] LABS: HEMOGLOBIN 14.8 G/DL (13.3-17.7); MEAN PLATELET VOLUME 9.3 FL (7.4-10.4); RED CELL DISTRIBUTION WIDTH 12.9 % (10.0-14.5); WHITE BLOOD COUNT 8.6 10^3/uL (4.3-11.0)
[2018-12-05 12:33] LABS: INR 0.9 (0.8-1.4); PROTHROMBIN TIME PATIENT 12.7 SEC (12.2-14.7)
[2018-12-05] MEDS ORDERED: ATOR10TA PO (12:41)
[2018-12-05] MEDS ORDERED: LISI-556 PO (12:41)
[2018-12-05] MEDS ORDERED: CLOP75TA69 PO (12:41)
[2018-12-05 12:45] LABS: ALANINE AMINOTRANSFERASE 54 U/L (0-55); ALBUMIN 4.5 GM/DL (3.2-4.5); ALKALINE PHOSPHATASE 66 U/L (40-136); BILIRUBIN,TOTAL 0.4 MG/DL (0.1-1.0); BUN/CREATININE RATIO 15; CALCIUM 9.5 MG/DL (8.5-10.1); CARBON DIOXIDE 27 MMOL/L (21-32); CHLORIDE 103 MMOL/L (98-107); CHOLESTEROL 237 MG/DL (< 200); CREATININE SERUM 0.79 MG/DL (0.60-1.30); GFR ESTIMATED > 60; GLUCOSE 101 MG/DL (70-105); HDL CHOLESTEROL 42 MG/DL (40-60); POTASSIUM 3.9 MMOL/L (3.6-5.0); SODIUM 140 MMOL/L (135-145); TOTAL PROTEIN 7.5 GM/DL (6.4-8.2); TRIGLYCERIDES 439 MG/DL (<150)
[2018-12-05] MEDS ORDERED: ICOS1CAP PO (12:45)
[2018-12-05] MEDS ORDERED: NAPR220T66 PO (12:49)
--- NOTE | 2018-12-05 12:51 | NUR ---
SPOKE WITH PT (HE HAD HIS HOME MEDS) WELL CALLING [facility] TO COMPLETE THE MED REC. PT WAS ABLE TO TELL ME HOW/WHEN HE TAKES ALL HIS MEDS. THE DATES ON HIS BOTTLES WERE NOT CURRENT, FOR THIS REASON I REACHED OUT TO [facility] TO SEE IF THEY HAD BETTER DATING. HERE ARE THE FOLLOWING FILL DATES: 09-25-2018 CLOPIDOGREL#90/90 10-01-2018 PANTOPRAZOLE #90/90DS 10-12-2018 LISINOPRIL #90/90DS 10-19-2018 METOPROLOL #90/90DS 10-26-2018 VASCEPA #360/90DS 10-29-2018 ATORVASTATIN #90/90DS OTC MEDS: ALEVE ASPIRIN 81 FISH OIL
[2018-12-05] MEDS ORDERED: HEParin 1000 UNIT/ML (10ML VIAL) FOR BOLUS ONE (15:28)
[2018-12-05] MEDS ORDERED: fentaNYL INJECTION 100 MCG/2 ML AMP ONE (15:28)
[2018-12-05] MEDS ORDERED: MIDAZOLAM 5 MG/5 ML (VERSED) VIAL ONE (15:28)
--- NOTE | 2018-12-05 15:32 | Cardiac Procedure Note-CS/ASA ---
Pre-Procedure Note Pre-Op Procedure Note H&P Reviewed The H&P was reviewed, patient examined and no changes noted. Date H&P Reviewed: Dec 05, 2018 Time H&P Reviewed: 15:32 Conscious Sedation Pre-Proced Time 15:32 ASA Score 3 For ASA 3 and 4: Consider anesthesia and medical clearance. Also, for patients with a history of failed moderate sedation consider anesthesia. Airway Lungs Heart ASA score ASA 1: a normal healthy patient ASA 2: a patient with a mild systemic disease (mid diabetes, controlled hypertension, obesity x ASA 3: a patient with a severe systemic disease that limits activity (angina, COPD, prior Myocardial infarction) ASA 4: a patient with an incapacitating disease that is a constant threat to life (CHF, renal failure) ASA 5: a moribund patient not expected to survive 24 hrs. (ruptured aneurysm) ASA 6: a declared brain- patient whose organs are being harvested. For emergent operations, add the letter E after the classification Mallampati Classification Grade 3 Sedation Plan Analgesia, Amnesia, Plan communicated to team members, Discussed options with patient/fam, Discussed risks with patient/fam The patient is an appropriate candidate to undergo the planned procedure, sedation, and anesthesia. The patient immediately re-assessed prior to indication. ISAAC HAMILTON MD Dec 05, 2018 15:32 POS
[2018-12-05] MEDS ORDERED: NITRO DRIP 25000 MCG/D5W 250 ML IV ONE (15:58)
[2018-12-05] MEDS ORDERED: ASPIRIN 81 MG CHEW (CHILDREN'S ASA) ONE (16:13)
[2018-12-05] MEDS ORDERED: CLOPIDOGREL 300 MG (PLAVIX) TABLET PO ONE (16:14)
[2018-12-05] MEDS ORDERED: PATIENT MAY USE OWN MEDS, ALL PO SCH (16:15)
--- NOTE | 2018-12-05 16:29 | Cardiac Cath Report ---
Cardiac Cath Report Physician (s)/Painter Ordnance (s) Physician ISAAC HAMILTON MD Pre-Procedure Diagnosis Pre-Procedure Diagnosis: coronary artery disease Post-Procedure Note Procedure Start Date: Dec 05, 2018 Name of Procedure: Left heart catheterization PTCA to circumflex artery Findings/Procedure Note PROCEDURE NOTE: 58 years old gentleman with extensive cardiac history, multiple intervention the past, has been having chest pain, known to have occluded right coronary artery and severe disease within a small circumflex artery treated with balloon angioplasty in the past, has been having chest pain, discussed the management plan recommended cardiac catheterization possible PTCA After explaining the procedure to the patient, all pros and cons were explained, all questions were answered. The patient signed the consent and then he was placed on the cardiac catheterization laboratory. Groin was prepped SL fashion local anesthesia was used. Sheath placed in the right femoral artery. Prme right and left catheter were used to access the coronary system. Prem right catheter was prolapsed the left ventricular cavity, pressure was measured, pullback LV to aorta was done. Next Patient was given 5000 unit of heparin, FL guide was advanced to the left, persistent, has severe stenosis within the stent in the circumflex artery and proximal to stent. BMW wire was advanced at [place] in the distal obtuse marginal branch. Then I proceeded with balloon dilatation using emerge 2.5 x 20 mm multiple inflation at the obtuse marginal and mid and distal disease with mild residual stenosis, significant improvement At the end of the procedure the sheath was removed. Closure device was used FINDINGS: Hemodynamics LV 131/10, end-diastolic pressure of 10 Aorta 120/72 mean of 86 ANATOMY: Left Main is free of obstructive disease Left Anterior Descending has [id number]-vr-dlotwfgk disease nonobstructive disease Left Circumflex has a stent extending from the midportion into the twos marginal branch with severe in-stent restenosis, moderate to severe stenosis at the proximal portion of the stent successful balloon angioplasty for in-stent restenosis with improvement from severe stenosis into mild residual stenosis up to 40 percent, the proximal portion also showed significant improvement Right Coronory Artery is occluded with collateral filling the distal right from the left system LV Gram was not done, pressure was measured CONCLUSION: 1. Severe in-stent restenosis in that mid and distal circumflex artery and obtuse marginal branch with successful balloon angioplasty with improvement from severe stenosis to mild residual stenosis up to 40 percent in the obtuse marginal branch and 30-40 percent proximal to the stent 2. Occluded right coronary artery receiving collaterals from the left 3. Mild disease in the LAD 4. Normal left ventricular end-diastolic pressure DISCUSSION AND RECOMMENDATION: Continue to maximize medical therapy. Increase Lipitor to 20 mg daily Anesthesia Type: Conscious Sedation Estimated blood loss (mL): 25 ml Contrast Amount: 100 ml Total Radiation Dose: 1003 mGy Post-Procedure Diagnosis Post-operative diagnosis: Chest pain Coronary artery disease Hypertension Hyperlipidemia ISAAC HAMILTON MD Dec 05, 2018 16:29 POS
[2018-12-05] MEDS: NS IV 1000 ML 1,000 ML IV SCH (18:17)
[2018-12-05] MEDS ORDERED: meTOprolol TARTRATE 25 MG (LOPRESSOR) TABLET PO SCH (21:00)
[2018-12-05] MEDS ORDERED: ICOSAPENT ETHYL 2 GM PO SCH (21:00)
[2018-12-06 00:09] VITALS: BP 125/79
[2018-12-06 00:10] VITALS: BP 125/79
[2018-12-06] MEDS: NS IV 1000 ML 1,000 ML IV SCH (02:43)
[2018-12-06 04:42] VITALS: BP 136/85
[2018-12-06] MEDS ORDERED: PANTOPRAZOLE 40 MG (PROTONIX) TAB PO SCH (07:00)
[2018-12-06] MEDS ORDERED: OMEGA 3 (FISH OIL) 1000 MG CAP PO SCH (07:00)
[2018-12-06] MEDS ORDERED: NAPROXEN 250 MG (NAPROSYN) TABLET PO SCH (07:00)
--- NOTE | 2018-12-06 07:42 | Cardiology Progress Note ---
Subjective Date Seen by Provider: Dec 06, 2018 Time Seen by Provider: 07:41 Subjective/Events-last exam Patient is laying down in bed, no chest pain, groin is healing well Review of Systems General: No Chills, No Night Sweats, No Fatigue, No Malaise, No Appetite, No Other HEENT: No Head Aches, No Visual Changes, No Eye Pain, No Ear Pain, No Dysphasia, No Sinus Congestion, No Post Nasal Drip, No Sore Throat, No Other Pulmonary: No Dyspnea, No Cough, No Pleuritic Chest Pain, No Other Cardiovascular: No: Chest Pain, Palpitations, Orthopnea, Paroxysmal Noc. Dyspnea, Edema, Lt Headedness, Other Objective-Cardiology Exam Last Set of Vital Signs Vital Signs 12/06/18 04:42 Temp 35.8 Pulse 64 Resp 18 B/P (MAP) 136/85 (102) Pulse Ox 93 O2 Delivery Room Air Capillary Refill : NONE I&O Intake and Output 12/06/18 00:00 Intake Total 1200 ml Balance 1200 ml Intake Oral 1200 ml # Voids 3 General: Alert, Oriented X3, Cooperative HEENT: Atraumatic, PERRLA Neck: Supple, No JVD, No Thyromegaly Lungs: Clear to Auscultation, Normal Air Movement Heart: Regular Rate, Normal S1, Normal S2, No Murmurs Abdomen: Normal Bowel Sounds, Soft, No Tenderness, No Hepatosplenomegaly, No Masses Extremities: No Clubbing, No Cyanosis, No Edema, Normal Pulses, No Tenderness/Swelling Skin: No Rashes, No Breakdown, No Significant Lesion Neuro: Normal Gait, Normal Speech, Strength at 5/5 X4 Ext, Normal Tone, Sensation Intact Psych/Mental Status: Mental Status NL, Mood NL Results Lab Laboratory Tests 12/05/18 12:16 A/P-Cardiology Admission Diagnosis Chest pain Coronary artery disease Hypertension Hyperlipidemia Assessment/Plan Chest pain, better at this time. Continue to monitor Coronary artery disease status post balloon angioplasty for in-stent restenosis as described below 1. Severe in-stent restenosis in that mid and distal circumflex artery and obtuse marginal branch with successful balloon angioplasty with improvement from severe stenosis to mild residual stenosis up to 40 percent in the obtuse marginal branch and 30-40 percent proximal to the stent 2. Occluded right coronary artery receiving collaterals from the left 3. Mild disease in the LAD 4. Normal left ventricular end-diastolic pressure Hypertension, continue current medication monitor Hyperlipidemia, continue current medication monitor ISAAC HAMILTON MD Dec 06, 2018 07:42 POS
[2018-12-06] MEDS ORDERED: ATOR20TA49 PO (07:44)
--- NOTE | 2018-12-06 07:44 | Discharge Inst-Post CATH ---
Discharge Inst-CATH/EP Problems Reviewed?: Yes Post Cardiac Cath/EP D/C Inst Follow Up/Plan Appointment with Dr. HAMILTON's office in 2-4 weeks <b>CARDIAC CATH/EP PROCEDURE DISCHARGE INSTRUCTIONS</b> ACTIVITY * Go Home directly and rest. * Limit activity of the leg (or wrist if it was used) for 7 days including aerobics, swimming, jogging, bicycling, etc. * Restrict stair-climbing for 7 days if possible, if not, climb up with your non-cath leg, then bring together on the same step. * Avoid lifting, pushing, pulling or excessive movement of the affected extremity for 7 days. * Customary sexual activity may be resumed after 2 days-use caution not to use a position that strains or causes pain to the affected extremity. * No driving for 24 hours. * NO SMOKING. * Avoid straining for bowel movements for 7 days. * Gentle walking on level ground is allowed. * Returning to work will depend on the type of procedure and the results. Your doctor will discuss this with you. CALL YOUR DOCTOR FOR ANY OF THE FOLLOWING: *If bleeding from the puncture site occurs- Apply gentle pressure to site with clean cloth and call your doctor or EMS. * If a knot or lump forms under the skin, increases in size, or causes pain. * If bruising appears to be worsening or moving further down your leg instead of disappearing. * Temperature above 101 F. CARE OF YOUR GROIN INCISION; * Bruising or purple discoloration of the skin near the puncture site is common. * You may shower only, no bathtub bathing for 5 days. Be careful to avoid slipping as your leg may feel stiff. * If a closure device was used on your femoral artery, please see the attached guide regarding care of the device and your leg. * Leave dressing on FOR 24 hours. CARE OF YOUR WRIST INCISION; * Bruising or purple discoloration of the skin near the puncture site is common. * You may shower. * DO NOT submerge wrist. * Leave dressing on FOR 24 hours. ISAAC HAMILTON MD Dec 06, 2018 07:44 POS
[2018-12-06 07:53] VITALS: BP 143/83
[2018-12-06] MEDS ORDERED: lisINopril 5 MG (PRINIVIL) TABLET PO SCH (09:00)
[2018-12-06] MEDS ORDERED: NON-FORMULARY MEDICATION 1 EA EA (Omega-3 Fatty Acids/Fish Oil (Fish Oil 1,200 mg Softgel) PO SCH (09:00)
[2018-12-06] MEDS ORDERED: NON-FORMULARY MEDICATION 1 EA EA (Naproxen Sodium (Aleve) 440 MG) PO SCH (09:00)
[2018-12-06] MEDS ORDERED: ASPIRIN E.C. 81 MG (ECOTRIN) TAB PO SCH (09:00)
[2018-12-06] MEDS ORDERED: CLOPIDOGREL 75 MG (PLAVIX) TABLET PO SCH (09:00)
== END 2018-12-06 08:10 | disposition home or self-care (01) ==
LOC: CATH 11:49 → CSD 16:35 → CATH 12-06 08:10
PROVIDERS: ATTEND Internal Medicine Cardiovascular Disease
DX: I25.10 Atherosclerotic heart disease of native coronary artery without angina pectoris (principal); I10 Essential (primary) hypertension; I65.29 Occlusion and stenosis of unspecified carotid artery; E78.2 Mixed hyperlipidemia; E11.9 Type 2 diabetes mellitus without complications; F41.9 Anxiety disorder, unspecified; F17.200 Nicotine dependence, unspecified, uncomplicated; Z88.5 Allergy status to narcotic agent; Z79.899 Other long term (current) drug therapy; Z79.82 Long term (current) use of aspirin; Z79.02 Long term (current) use of antithrombotics/antiplatelets; Z82.49 Family history of ischemic heart disease and other diseases of the circulatory system; Z80.9 Family history of malignant neoplasm, unspecified
CPT/HCPCS: 36415; 71045; 80053; 80061; 85027; 85610; 85730; 87081; 93005; 93458

== ENCOUNTER 2020-05-26 11:40 | Emergency (ER) | payer BC ==
[~2020-05-26] VITALS: Ht 177 cm; Wt 91.0 kg
[~2020-05-26 11:40] MED LIST changes: +ASPI-1238 PO; -ASPI-983 PO; +ATOR10TA PO; +ATOR20TA49 PO; +CLOP75TA69 PO; +FENO145T26 PO; -FENO145T37 PO; +ICOS1CAP PO; -LISI-556 PO; +LISI-729 PO; +NAPR220T66 PO; -PANT40TA3 PO; +PANT40TA52 PO
[2020-05-26] MEDS ORDERED: OXYMETAZOLINE (AFRIN) 0.05% NA 30 ML BTL ONE (11:44)
--- NOTE | 2020-05-26 12:06 | ED EENT ---
History of Present Illness General Chief Complaint: Nasal Problems Stated Complaint: BLEEDING FROM R EYE AND NOSE Nursing Triage Note: PT AMB TO ROOM 3 PT CO OF NOSE BLEED THAT STARTED APPROX 1 HOUR AGO, PT DENIES PAIN, STATES JUST STARTED BLEEDING. STATES STARTED IN L SIDE FIRST, R EYE ALSO HAVING BLOOD FROM IT. NOSE CLAMP APPLIED. ICE PACK APPLIEDTO FOREHEAD Source: patient Exam Limitations: no limitations History of Present Illness Date Seen by Provider: May 26, 2020 Time Seen by Provider: 11:52 Initial Comments Patient is a 59-year-old male who presents to the emergency department today with a chief complaint of a nosebleed. Patient states it started about 30 minutes prior to arrival. He states that he had a little bit of a runny nose this morning and sneezed about 3 times. He states he felt like his nose was running again when he reached up he realized it was bleeding. It seems to be only coming out of the left nare. Patient states that he became concerned when he noticed that he was bleeding out of his right eye. He denies any recent illnesses such as fevers, chills cough or congestion. He has most recently had a Covid vaccine within the last 2 weeks. He is on blood thinners with a history of cardiovascular disease, aspirin and possibly Plavix as well. At the time of my initial evaluation the patient has an ice pack to his forehead and a nose clamp in place. He complains of feeling his sinuses "filling up" with blood. All other review of systems reviewed and negative except as stated above. Allergies and Home Medications Allergies Coded Allergies: codeine (Verified Adverse Reaction, Unknown, 05/20/17) MAKES HIM JITTERY Home Medications Aspirin 81 Mg Tablet., 81 MG PO DAILY, (Reported) Last Action: Last Taken Edited Atorvastatin Calcium 20 Mg Tablet, 20 MG PO DAILY Prescribed by: ISAAC HAMILTON on 12/06/18 0744 Last Action: Last Taken Edited Clopidogrel Bisulfate 75 Mg Tablet, 75 MG PO DAILY, (Reported) Last Action: Last Taken Edited Icosapent Ethyl 1 Gm Capsule, 2 GM PO BID, (Reported) Last Action: Last Taken Edited Lisinopril 5 Mg Tablet, 5 MG PO DAILY, (Reported) Last Action: Last Taken Edited Metoprolol Tartrate 25 Mg Tablet, 12.5 MG PO BID, (Reported) TAKES 1/2 OF A (25 MG) TABLET Last Action: Last Taken Edited Naproxen Sodium 220 Mg Tablet, 440 MG PO DAILY, (Reported) Last Action: Last Taken Edited [place]fee-3 Fatty Acids/Fish Oil 1 Each Capsule, 3,600 MG PO DAILY, (Reported) TAKES 3 (1,200 MG) CAPSULES Last Action: Last Taken Edited Pantoprazole Sodium 40 Mg Tablet.dr, 40 MG PO DAILY, (Reported) Last Action: Last Taken Edited Patient Home Medication List Home Medication List Reviewed: Yes Review of Systems Review of Systems Constitutional: see HPI Eyes: Drainage (Bloody drainage from his right eye) Ears: No Symptoms Reported Nose: clots, congestion, epistaxis (Left nare) Mouth: no symptoms reported Throat: no symptoms reported Respiratory: no symptoms reported Cardiovascular: no symptoms reported Gastrointestinal: no symptoms reported Musculoskeletal: no symptoms reported Skin: no symptoms reported All Other Systems Reviewed Negative Unless Noted: Yes Past Rcdylzj-Nsabev-Eqitvl Hx Patient Social History Alcohol Beverage of Choice: Wine Type Used: Cigarettes 2nd Hand Smoke Exposure: Yes Recent Infectious Disease Expo: No Recent Hopitalizations: No Immunizations Up To Date PED Vaccines UTD: No Seasonal Allergies Seasonal Allergies: No Past Medical History Surgeries: Yes (HEART CATH WITH STENT PLACEMENT X 4) Orthopedic Respiratory: No Cardiac: Yes Heart Attack, High Cholesterol, Hypertension Neurological: No Reproductive Disorders: No Genitourinary: No Gastrointestinal: Yes Gastroesophageal Reflux Musculoskeletal: Yes ("NEED HIP REPLACEMENT") Endocrine: No HEENT: No Cancer: No Psychosocial: No Integumentary: No Blood Disorders: No Family Medical History Cardiovascular disease 19 MOTHER, , Age:50's - 60 G8 BROTHER Cataracts Colon cancer 19 FATHER, , Age:50's - 60 19 MOTHER, , Age:50's - 60 Completed stroke G8 BROTHER FH: CABG (coronary artery bypass surgery) G8 BROTHER Internal cardiac defibrillator G8 BROTHER Myocardial infarction G8 BROTHER, , Age:30's - 40 Pacemaker G8 BROTHER Physical Exam Vital Signs Vital Signs - First Documented 05/26/20 11:53 Temp 36.5 Pulse 82 Resp 18 B/P (MAP) 175/108 (130) Pulse Ox 99 Height, Weight, BMI Height: 5'10.00" Weight: 190lbs. 8.0oz. [id number]; 29.00 BMI Method:Stated General Appearance: WD/WN, no apparent distress Eyes: right eye other (Bloody discharge noted from the right ear duct); bilateral eye normal inspection, bilateral eye PERRL, bilateral eye EOMI Nose: normal inspection, other (Clamp initially in place. Once this is removed the patient is noted to have fresh blood in both nares. No active bleeding from either nare. There is a clot that is visualized quite posteriorly in the left nare) Neck: full range of motion, supple Cardiovascular: regular rate, rhythm Respiratory: lungs clear, normal breath sounds, no respiratory distress Gastrointestinal: non tender, soft Neurologic/Psychiatric: alert, normal mood/affect, oriented x 3 Skin: normal color, warm/dry Progress/Results/Core Measures Results/Orders My Orders Orders - PHILLIP CAMPUZANO MD Oxymetazoline 0.05% Nasal [place] (Afrin 0. (05/26/20 11:44) Vital Signs/I&O 05/26/20 11:53 Temp 36.5 Pulse 82 Resp 18 B/P (MAP) 175/108 (130) Pulse Ox 99 Blood Pressure Mean: 130 Progress Progress Note : Time: 12:05 Progress Note Clamp in place for about 20 minutes. Removed and the patient seems to have hemostasis of his nosebleed. He was able to evacuate a couple of large clots out of the back of his throat/his sinuses. Looking in the back of his throat I don't see a significant amount of bleeding in the posterior pharynx. He seems comfortable. He is quite hypertensive at the moment with a diastolic of 108. Nothing other than direct pressure was used to control his bleeding. Afrin was not applied at this time secondary to his elevated blood pressures. 1259 Patient monitored in the emergency department for approximately 1 hour. No recurrence of the bleeding. His blood pressure has improved through the course of his ED evaluation as well. Patient is comfortable with discharge. I have recommended the saline pledgets, saline nasal spray to help keep his nasal tissues nice and moist. He verbalized understanding. All questions have been sought and answered. Patient stable for discharge. Departure Impression Primary Impression: Epistaxis Additional Impression: Essential hypertension Disposition: HOME, SELF-CARE Condition: Stable Departure-Patient Inst. Decision time for Depature: 12:11 Referrals: NO,LOCAL PHYSICIAN (PCP/Family) Primary Care Physician Patient Instructions: Nosebleeds (DC) Add. Discharge Instructions: Do not blow your nose and try not to sneeze for at least the next several hours. Use an [id number]-[id number] saline gel or saline nasal spray to help keep the tissues in your nose nice and moist. If your nose starts bleeding again hold direct pressure, similar to the clamp that was used this morning, for approximately 5 to 10 minutes. This should help to slow down and stop any nosebleeding that might recur. Follow-up with your primary care physician. Return to the emergency room for any bleeding that does not stop. HPILLIP CAMPUZANO MD May 26, 2020 12:06
[2020-05-26] MEDS ORDERED: FENO67CA (12:08)
[2020-05-26 13:06] VITALS: BP 132/106
== END 2020-05-26 13:05 | disposition home or self-care (01) ==
LOC: EDUNIT# 11:40 → ER 11:43
DX: R04.0 Epistaxis (principal); I10 Essential (primary) hypertension; I25.2 Old myocardial infarction; K21.9 Gastro-esophageal reflux disease without esophagitis; E78.00 Pure hypercholesterolemia, unspecified; Z77.22 Contact with and (suspected) exposure to environmental tobacco smoke (acute) (chronic); Z88.5 Allergy status to narcotic agent; Z79.82 Long term (current) use of aspirin
CPT/HCPCS: 99283

== ENCOUNTER → 2022-05-11 | Outpatient (CLI) | payer BC ==
[~2022-05-11] MED LIST changes: +CLOP-31 PO; -CLOP75TA69 PO; +FENO67CA14; -LISI-729 PO; +LISI5TAB20 PO
[2022-05-11 09:48] VITALS: BP 131/97
== END ==
LOC: CARD 08:30
PROVIDERS: ATTEND Internal Medicine Cardiovascular Disease
DX: I25.10 Atherosclerotic heart disease of native coronary artery without angina pectoris (principal)
CPT/HCPCS: C8929; C8930; 93306